=== PATIENT | female | born 1980 | race Caucasian/White ===

== ENCOUNTER 2018-02-13 19:44 | Inpatient (IN) ==
[2018-02-13] MEDS ORDERED: Ketorolac Inj 30 MG/ML (IVP) Vial IV.PUSH ONE (23:35)
[2018-02-13] MEDS ORDERED: Sod Chloride 0.9% Inj 1,000 ML IV.SIG ONE (23:35)
--- NOTE | 2018-02-13 23:39 | ED ---
HPI General Chief Complaint: Headache Stated Complaint: Sent by dr/abnormal labs Time Seen by Provider: 02/13/18 23:29 Source: patient and family Mode of arrival: ambulatory Limitations: no limitations History of Present Illness HPI Narrative: 37-year-old female presents emergency department for evaluation of headache and abnormal vaginal bleeding for over 8 months. She states that her headache is frontal in nature. Sharp and throbbing in quality. Present now for the last day or so. No alleviating factors. She states that she is also been feeling rundown, weak in general malaise. Positive body aches. She feels dizzy and lightheaded. She has had abnormal bleeding now for 8 months and has not seen a doctor. She went to a free clinic in [place] today who advised her to get outpatient laboratory tests go to the ER. She lives here in [facility] and does not have a primary care doctor. Symptoms are moderate. Denies . Related Data Home Medications Medication Instructions Recorded Confirmed No Known Home Medications 02/14/18 02/14/18 Allergies Allergy/AdvReac Type Severity Reaction Status Date / Time No Known Allergies Allergy Unverified 02/14/18 07:48 Review of Systems ROS: all other systems reviewed are negative PMFSH History History Provided By: Patient and Family Member Medical History Medical History No pertinent past medical history (Acute) Family History Family History Other Family history normal Social History Social History Substance History: No History of Abuse Second Hand Smoke Exposure: No Smoking Status: Never smoker How Often Do You Have a Drink Containing Alcohol: Never Recent Travel in [facility] within the Last 8 Weeks: No Recent Out of Country Travel within the Last 8 Weeks: No Exam Narrative Exam Narrative: GENERAL: Well-developed, well-nourished in no apparent distress. Nontoxic appearing. HEAD: Normocephalic, atraumatic. EYES: Pupils equal round and reactive. Extraocular motions intact. No scleral icterus. No injection or drainage. ENT: Nose clear. Throat without erythema, tonsillar hypertrophy or exudate. Uvula midline. Airway patent. NECK: Trachea midline. Supple, nontender, moves head freely. No central bony tenderness or spasm. CARDIOVASCULAR: Regular rate and rhythm without murmurs, gallops, or rubs. RESPIRATORY: Clear to auscultation. Breath sounds equal bilaterally. No wheezes , rales, or rhonchi. GASTROINTESTINAL: Abdomen soft, non-tender, nondistended. No hepato-splenomegaly , or palpable masses. No guarding. EXTREMITIES: No clubbing, cyanosis, or edema. No joint tenderness. BACK: Nontender without deformity. No flank tenderness. NEUROLOGICAL: Awake, alert and oriented x 3 .Cranial nerves grossly intact. Motor and sensory grossly within normal limits. Normal speech. Course Initial Documented Vital Signs Temperature 99.3 F 02/13/18 20:19 Pulse Rate 102 H 02/13/18 20:19 Respiratory Rate 16 02/13/18 20:19 Blood Pressure 111/65 02/13/18 20:19 Pulse Oximetry 100 02/13/18 20:19 Last Documented Vital Signs Temperature 98.0 F 02/14/18 12:00 Pulse Rate 95 H 02/14/18 12:00 Respiratory Rate 18 02/14/18 12:00 Blood Pressure 111/61 02/14/18 12:00 Pulse Oximetry 100 02/14/18 12:00 Medical Decision Making MDM Narrative Medical decision making narrative: IV access is obtained. Patient is given liter bolus of normal saline, Toradol 30 mg IV, Benadryl 50 mg IV, and Reglan 10 mg IV. Will perform basic metabolic panel, CBC, . Differential Diagnosis Differential Diagnosis: Dysfunctional uterine bleeding, anemia, electrolyte abnormality, cephalgia, tension headache, migraine Lab Data Result diagrams: 02/14/18 09:33 02/13/18 23:40 Lab Results 02/13/18 02/13/18 02/13/18 Range/Units 23:40 23:40 23:40 WBC 7.9 (4.0-11.0) th/mm3 RBC 2.15 L (4.00-5.30) mil/mm3 Hgb 4.8 L* (11.6-15.3) gm/dL Hct 15.5 L* (35.0-46.0) % MCV 72.0 L (80.0-100.0) fL MCH 22.2 L (27.0-34.0) pg MCHC 30.8 L (32.0-36.0) % RDW 18.8 H (11.6-17.2) % Plt Count 230 (150-450) th/mm3 MPV 7.5 (7.0-11.0) fL Sodium 140 (136-145) meq/L Potassium 3.8 (3.5-5.1) meq/L Chloride 106 (98-107) meq/L Carbon Dioxide 26.0 (21.0-32.0) meq/L Anion Gap 8 (5-15) meq/L BUN 11 (7-18) mg/dL Creatinine 0.64 (0.50-1.00) mg/dL Estimated GFR Greater than 89 (>89) mL/min Random Glucose 94 (74-106) mg/dL Calcium 8.5 (8.5-10.1) mg/dL Iron 10 L (50-170) mcg/dL TIBC 476 H (250-450) mcg/dL % Saturation 2.1 L (20-50) % TSH (0.358-3.740) uIU/mL Blood Type Antibody Screen MTS Gel Crossmatch 02/14/18 02/14/18 02/14/18 Range/Units 00:40 09:33 09:33 WBC (4.0-11.0) th/mm3 RBC (4.00-5.30) mil/mm3 Hgb 8.4 L D (11.6-15.3) gm/dL Hct 25.6 L (35.0-46.0) % MCV (80.0-100.0) fL MCH (27.0-34.0) pg MCHC (32.0-36.0) % RDW (11.6-17.2) % Plt Count (150-450) th/mm3 MPV (7.0-11.0) fL Sodium (136-145) meq/L Potassium (3.5-5.1) meq/L Chloride (98-107) meq/L Carbon Dioxide (21.0-32.0) meq/L Anion Gap (5-15) meq/L BUN (7-18) mg/dL Creatinine (0.50-1.00) mg/dL Estimated GFR (>89) mL/min Random Glucose (74-106) mg/dL Calcium (8.5-10.1) mg/dL Iron (50-170) mcg/dL TIBC (250-450) mcg/dL % Saturation (20-50) % TSH 1.810 (0.358-3.740) uIU/mL Blood Type A Positive Antibody Screen Negative MTS Gel Crossmatch See Detail Imaging Data Radiologist's impression: Pelvis Ultrasound 02/14/18 00:00 CONCLUSION: 1. Myometrium is heterogeneous and hyperemic. Findings are nonspecific. No discrete mass lesions. 2. Both ovaries are sonographically normal. No free fluid. Discharge Plan Discharge Disposition Patient Disposition: 01 Discharge Home Discharge Condition Condition: Stable Discharge Order Discharge Orders: Discharge Order (Routine); Ordered 02/14/18 Ordered By: Kain Prieto Discharge Details Anticipated Discharge Date: 02/14/18 Physicians Team ED Provider: Lori Joseph ED Midlevel Provider: Kain Prieto Primary Care Provider: Primary Care Gaby Bartlett Attending Provider: Isaias Rojas Other Providers: Donna Villasenor Discharge Interventions Interventions: ED Discharge Assessment Last Done: 02/14/18 11:38 Status ED Status: Left Department Discharge Information Discharge Date/Time: 02/14/18 11:39
[2018-02-14 00:27] LABS: Mean Corpuscular Hemoglobin 22.2 pg (27.0-34.0); Mean Platelet Volume 7.5 fL (7.0-11.0); Platelet Count 230 th/mm3 (150-450); Red Blood Count 2.15 mil/mm3 (4.00-5.30); Red Cell Distribution Width 18.8 % (11.6-17.2); White Blood Count 7.9 th/mm3 (4.0-11.0)
[2018-02-14 00:31] LABS: Mean Corpuscular HGB Conc 30.8 % (32.0-36.0)
[2018-02-14 00:35] LABS: Hematocrit 15.5 % (35.0-46.0); Hemoglobin 4.8 gm/dL (11.6-15.3)
[2018-02-14 00:40] LABS: Anion Gap 8 meq/L (5-15); Blood Urea Nitrogen 11 mg/dL (7-18); Calcium 8.5 mg/dL (8.5-10.1); Chloride 106 meq/L (98-107); Glomerular Filtration Rate Greater Than 89 mL/min (>89); Glucose,Random 94 mg/dL (74-106); Potassium 3.8 meq/L (3.5-5.1); Sodium 140 meq/L (136-145)
[2018-02-14] MEDS ORDERED: Sodium Chlor 0.9% Inj 250 ML IV.SIG SCH (01:00)
[2018-02-14] MEDS ORDERED: Acetaminophen 325 MG Tablet PO PRN (01:50)
[2018-02-14] MEDS ORDERED: Bisacodyl 10 MG Supp RECTAL PRN (01:50)
[2018-02-14] MEDS ORDERED: Temazepam 15 MG Capsule PO PRN (01:50)
[2018-02-14] MEDS: Sod Chloride 0.9% Inj 1,000 ML IV.CONT SCH ×2 (02:58→15:50)
[2018-02-14 03:43] LABS: % Iron Saturation 2.1 % (20-50)
--- NOTE | 2018-02-14 05:42 | P.HP ---
History of Present Illness Service: [facility] Primary Care Physician: No Primary Care Physician History of Present Illness: 37-year-old female with no significant past medical history presents the emergency department for the evaluation of headache and abnormal vaginal bleeding for approximately 8 months. The patient reports that her headache is in the front top of her head. She reports it is sharp and throbbing in quality. She states it is been present for the last 24 hours. The patient also reports that she has been feeling dizzy and weak. She endorses associated lightheadedness. Her hemoglobin was found to be 4.8. The patient does not have a primary care physician. Inpatient Certification: I certify that the inpatient services were ordered in accordance with Medicare regulations governing the order. This includes certification that hospital inpatient services are reasonable and necessary and in the case of services not specified as inpatient-only under 42 CFR 419.22(n), that they are appropriately provided as inpatient services in accordance to with the 2-midnight benchmark under 43 CFR 412.3(e) Estimated Total Length of Stay (Days): 2 Plans for Post Hospital Care: Not yet determined Review of Systems Denies fever or chills Denies blurry vision, otorrhea, rhinorrhea Denies sore throat and cough No chest pain, palpitations No shortness of breath or wheezing No abdominal pain Denies constipation/diarrhea/nausea/vomiting Denies muscle pain Denies focal weakness No rashes PMFSH - History History Provided By: Patient, Family Member - Medical / Surgical Hx Neg / Unobtainable Surgical History: No Previous Surgery - Medical History Medical History: Medical History (Last Updated 02/14/18 @ 05:40 by Brittney Copeland MD) No pertinent past medical history - Family History Family History: Family History (Last Updated 02/14/18 @ 05:40 by Brittney Copeland MD) Other Family history normal - Tobacco History Second Hand Smoke Exposure: No Smoking Status: Never smoker - Alcohol History How Often Do You Have a Drink Containing Alcohol: Never - Travel History Recent Travel in the [place] Within the Last 8 Weeks: No Recent Travel Out of the Country Within the Last 8 Weeks: No - Immunization History Tetanus Immunization: Unsure Hx Influenza Vaccine This Season: No Medications and Allergies Active Medications: Active Medications Acetaminophen (Tylenol) 650 mg PO Q4H PRN PRN Reason: Temp > 100.4 Al Hydroxide/Mg Hydroxide (Milk Of Magnesia Liq) 30 ml PO Q12H PRN PRN Reason: Mild Constipation Bisacodyl (Dulcolax Supp) 10 mg RECTAL DAILY PRN PRN Reason: SEVERE CONSITIPATION Sodium Chloride (Ns Inj) 250 mls @ 15 mls/hr IV.SIG ONCE VIVEK Stop: 02/14/18 17:39 Last Admin: 02/14/18 02:58 Dose: 15 mls/hr Sodium Chloride (Ns Inj) 1,000 mls @ 100 mls/hr IV.CONT .Q10H VIVEK Last Admin: 02/14/18 02:58 Dose: 100 mls/hr Lactulose (Lactulose Liq) 30 ml PO DAILY PRN PRN Reason: SEVERE CONSITIPATION Ondansetron HCl (Zofran Inj) 4 mg IV.PUSH Q6H PRN PRN Reason: NAUSEA OR VOMITING Senna/Docusate Sodium (Gracy-Colace) 1 tab PO BID VIVEK Sennosides (Senokot) 17.2 mg PO Q12H PRN PRN Reason: Moderate Constipation Temazepam (Restoril) 15 mg PO HS PRN PRN Reason: INSOMNIA Allergies Allergy/AdvReac Type Severity Reaction Status Date / Time No Known Allergies Uncoded 12/25/09 17:59 Exam Vital signs: Vital Signs 02/13/18 20:19 02/14/18 02:50 02/14/18 03:05 Temperature 99.3 F 98.5 F 98.6 F Pulse Rate 102 H 83 91 H Respiratory Rate 16 14 16 Blood Pressure 111/65 109/60 102/60 Pulse Oximetry 100 96 02/14/18 03:14 02/14/18 04:44 02/14/18 05:00 Temperature 98.6 F 98.5 F 98.4 F Pulse Rate 91 H 75 74 Respiratory Rate 16 16 16 Blood Pressure 102/60 105/62 99/59 L Pulse Oximetry 96 100 100 Intake & Output 02/13/18 02/13/18 02/14/18 06:59 18:59 06:59 Intake Total 400 / 400 Balance 400 / 400 Weight 62.142 kg Intake: Intake (Blood Product) Amt 400 / 400 Rbc As-3 Leukoreduced Unit 400 / 400 [id number] Rbc As-3 Leukoreduced Unit 0 / 0 [id number] Narrative: Gen.: No acute distress Head: Normocephalic. Atraumatic. EENT: Pupils equal round and reactive to light. Nose without drainage. Airway intact. Throat without injection. Cardiovascular: Regular rate and rhythm. No murmurs, rubs or gallops. Respiratory: Lungs clear to auscultation bilaterally. No wheezes or rhonchi. Abdomen: Soft, nontender, nondistended. No peritoneal signs. Musculoskeletal: No gross deformities. No edema. Skin: No obvious rashes or erythema. Neuro: Sensory and motor grossly intact. Cranial nerves II through XII grossly intact. Psych: Appropriate mood and affect Results - Labs CBC & Chem 7: 02/13/18 23:40 02/13/18 23:40 Labs: Laboratory Results - last 24 hr 02/13/18 02/13/18 02/13/18 23:40 23:40 23:40 WBC 7.9 RBC 2.15 L Hgb 4.8 L* Hct 15.5 L* MCV 72.0 L MCH 22.2 L MCHC 30.8 L RDW 18.8 H Plt Count 230 MPV 7.5 Sodium 140 Potassium 3.8 Chloride 106 Carbon Dioxide 26.0 Anion Gap 8 BUN 11 Creatinine 0.64 Estimated GFR Greater than 89 Random Glucose 94 Calcium 8.5 Iron 10 L TIBC 476 H % Saturation 2.1 L Blood Type Antibody Screen MTS Gel Crossmatch 02/14/18 00:40 WBC RBC Hgb Hct MCV MCH MCHC RDW Plt Count MPV Sodium Potassium Chloride Carbon Dioxide Anion Gap BUN Creatinine Estimated GFR Random Glucose Calcium Iron TIBC % Saturation Blood Type A Positive Antibody Screen Negative MTS Gel Crossmatch See Detail Caprini VTE Risk Assessment Caprini VTE Risk Assessment: No/Low Risk (score <= 1) Caprini Risk Assessment Model: Point Value = 1 Point Value = 2 Point Value = 3 Point Value = 5 Age 41-60 Minor surgery BMI > 25 kg/m2 Swollen legs Varicose veins or History of unexplained or recurrent spontaneous Oral contraceptives or hormone replacement Sepsis (< 1 month) Serious lung disease, including pneumonia (< 1 month) Abnormal pulmonary function Acute myocardial infarction Congestive heart failure (< 1 month) History of inflammatory bowel disease Medical patient at bed rest Age 61-74 Arthroscopic surgery Major open surgery (> 45 min) Laparoscopic surgery (> 45 min) Malignancy Confined to bed (> 72 hours) Immobilizing plaster cast Central venous access Age >= 75 History of VTE Family history of VTE Factor V Leiden Prothrombin [id number] Lupus anticoagulant Anticardiolipin antibodies Elevated serum homocysteine Heparin-induced thrombocytopenia Other congenital or acquired thrombophilia Stroke (< 1 month) Elective arthroplasty Hip, pelvis, or leg fracture Acute spinal cord injury (< 1 month) Prophylaxis Regimen: Total Risk Factor Score Risk Level Prophylaxis Regimen 0-1 Low Early ambulation 2 Moderate Order ONE of the following: *Sequential Compression Device (SCD) *Heparin 5000 units SQ BID 3-4 Higher Order ONE of the following medications: *Heparin 5000 units SQ TID *Enoxaparin/Lovenox 40 mg SQ daily (WT < 150 kg, CrCl > 30 mL/min) *Enoxaparin/Lovenox 30 mg SQ daily (WT < 150 kg, CrCl > 10-29 mL/min) *Enoxaparin/Lovenox 30 mg SQ BID (WT < 150 kg, CrCl > 30 mL/min) AND/OR *Sequential Compression Device (SCD) 5 or more Highest Order ONE of the following medications: *Heparin 5000 units SQ TID (Preferred with Epidurals) *Enoxaparin/Lovenox 40 mg SQ daily (WT < 150 kg, CrCl > 30 mL/min) *Enoxaparin/Lovenox 30 mg SQ daily (WT < 150 kg, CrCl > 10-29 mL/min) *Enoxaparin/Lovenox 30 mg SQ BID (WT < 150 kg, CrCl > 30 mL/min) AND *Sequential Compression Device (SCD) Assessment and Plan - Plan Assessment/plan: 1. Symptomatic anemia/abnormal vaginal bleeding Patient with an H&H of 4.8/15.5 Transfuse 3 units packed red blood cells Follow-up H&H status post transfusion Gynecology consulted, appreciate recommendations Iron studies pending FEN N.p.o. Electrolytes: Monitor and replete as needed
[2018-02-14 10:39] LABS: Hematocrit 25.6 % (35.0-46.0); Hemoglobin 8.4 gm/dL (11.6-15.3)
[2018-02-14] MEDS: Senna/Docusate Sodium 8.6/50 MG Tablet PO SCH (12:48)
--- NOTE | 2018-02-14 16:00 | US ---
EXAM DATE: 02/14/2018 8:12 AM EDT AGE/SEX: 37 years / Female INDICATIONS: Bleeding. CLINICAL DATA: This is the patient's initial encounter. Patient reports that signs and symptoms have been present for 7 - 11 months and indicates a pain score of 3/10. MEDICAL/SURGICAL HISTORY: . Symptomatic anemia. Abnormal vaginal bleeding. None. COMPARISON: No prior exams available for comparison. MEASUREMENTS: Uterus:__9.0 x 6.4 x 5.0 cm Endometrial Stripe:__3 mm Right Ovary:__ 3.4 x 2.2 x 1.7 cm Left Ovary:__ 2.0 x 1.6 x 1.4 cm FINDINGS: Uterus: Myometrium is somewhat heterogeneous with no discrete mass lesion. Increased vascularity on c olor Doppler images. Endometrial Stripe: The endometrial stripe displays homogeneous echotexture. Right Ovary: Ovary contains no mass or significant cystic lesion. Left Ovary: Ovary contains no mass or significant cystic lesion. Fluid: No free fluid. Other: None. CONCLUSION: 1. Myometrium is heterogeneous and hyperemic. Findings are nonspecific. No discrete mass lesions. 2. Both ovaries are sonographically normal. No free fluid. Electronically signed by: William Lee MD 02/14/2018 3:58 PM EDT
--- NOTE | 2018-02-14 16:07 | P.PN ---
Subjective Interval history: awake and alert [place] speaking feels stronger seen with - also citizen of [place] speaking - history reviewed with both of them - denies vaginal bleeding but blood per RECTUM with brown stools for about 4 weeks states frequent frontal headaches and takes Ibuprofen 2-3 tablets almost on a daily basis for past 3=4 months having on and off mild epigastric discomfort, denies any nausea or vomiting denies alcohol use + family history of colon cancer - sibling states regular menstrual cycles- q 28- 30 days- 4-5 days duration, denies heavy cycles no changes in cycles , no dysmenorrhea LMP 01/20 Physical Exam Vital signs: Vital Signs 02/13/18 20:19 02/14/18 02:50 02/14/18 03:05 Temperature 99.3 F 98.5 F 98.6 F Pulse Rate 102 H 83 91 H Respiratory Rate 16 14 16 Blood Pressure 111/65 109/60 102/60 Pulse Oximetry 100 96 02/14/18 03:14 02/14/18 04:44 02/14/18 05:00 Temperature 98.6 F 98.5 F 98.4 F Pulse Rate 91 H 75 74 Respiratory Rate 16 16 16 Blood Pressure 102/60 105/62 99/59 L Pulse Oximetry 96 100 100 02/14/18 06:22 02/14/18 06:35 02/14/18 06:39 Temperature 98.4 F 98.4 F Pulse Rate 84 74 79 Respiratory Rate 16 16 14 Blood Pressure 106/70 101/59 L 106/65 Pulse Oximetry 100 100 100 02/14/18 09:09 02/14/18 12:00 Temperature 98.1 F 98.0 F Pulse Rate 82 95 H Respiratory Rate 17 18 Blood Pressure 97/88 L 111/61 Pulse Oximetry 100 100 Intake & Output 02/13/18 02/14/18 02/14/18 18:59 06:59 18:59 Intake Total 800 / 800 1400 / 1400 Balance 800 / 800 1400 / 1400 Weight 62.142 kg 62.142 kg Intake: IV 1000 / 1000 NS Inj 1,000 ML @ 100 mls/hr IV 1000 / 1000 .CONT .Q10H [facility] Rx#:[id number] Intake (Blood Product) Amt 800 / 800 400 / 400 Rbc As-3 Leukoreduced Unit 0 / 0 400 / 400 [id number] Rbc As-3 Leukoreduced Unit 400 / 400 [id number] Rbc As-3 Leukoreduced Unit 400 / 400 [id number] Other: Weight On Admission 62.142 kg Narrative: awake and alsrt, oriented x 3, citizen of [place] speaking anicteric lungs- clear regular rhythm abdomen soft, good bowel sounds, no tenderness, no guarding extremities no edema rectal exam- tight sphincter tone, one small skin tag, empty rectal vault, no stools on withdrawal of tactaing finger neuro exam- CN intact motor 5/5 no sensory deficits Results - Labs CBC & Chem 7: 02/15/18 16:00 02/15/18 04:45 Laboratory Results - last 24 hr 02/13/18 02/13/18 02/13/18 23:40 23:40 23:40 WBC 7.9 RBC 2.15 L Hgb 4.8 L* Hct 15.5 L* MCV 72.0 L MCH 22.2 L MCHC 30.8 L RDW 18.8 H Plt Count 230 MPV 7.5 Sodium 140 Potassium 3.8 Chloride 106 Carbon Dioxide 26.0 Anion Gap 8 BUN 11 Creatinine 0.64 Estimated GFR Greater than 89 Random Glucose 94 Calcium 8.5 Iron 10 L TIBC 476 H % Saturation 2.1 L TSH Blood Type Antibody Screen MTS Gel Crossmatch 02/14/18 02/14/18 02/14/18 00:40 09:33 09:33 WBC RBC Hgb 8.4 L D Hct 25.6 L MCV MCH MCHC RDW Plt Count MPV Sodium Potassium Chloride Carbon Dioxide Anion Gap BUN Creatinine Estimated GFR Random Glucose Calcium Iron TIBC % Saturation TSH 1.810 Blood Type A Positive Antibody Screen Negative MTS Gel Crossmatch See Detail Assessment and Plan - Plan 37 years old female came in with dizziness, weakness seen with both citizen of [place] speaking History reviewed with both of them Severe Symptomatic Iron deficiency anemia likely from insidious, chronic GIB- states blood per rectum mixed with brown stools with history of chronic NSAIDs use for headaches S/P 3 units RBC - H and H up- Patient with an H&H of 4.8/15.5 on admission - + family history of colon cancer- a sibling - start Iron sulfate 325 mg po bid - doubt vaginal bleeding - by history per patient- regular cycles - rectal exam- done at bedside- tight sphincter tone, no stools,no blood on withdrawal examining finger - start IV PPI - Gastroenterology consult- consult for EGD/colonoscopy- will defer to them for imaging studies - clear liquids tonight, NPO after midnight - CBC in am ? Vaginal bleeding- denies - cancel GYne consult for now pending above work up - a pelvic ultrasound ordered- will ff results Chronic headaches- no associated visual disturbances - neuro exam- unremarkable - will get a head CT at least - non emergent may have clear liquid today NPO post midnight discussed with patient and at bedside
[2018-02-14] MEDS ORDERED: PEG 3350/E-Lyte Soln 4000 ML Bottle PO ONE (17:00)
--- NOTE | 2018-02-14 17:10 | P.CONGI ---
History of Present Illness Consult date: 02/14/18 Consult reason: Rectal bleeding Chief complaint: Symptomatic Anemia History of Present Illness: This is a 37 yo F with no significant PMH who presented to a clinic in [facility] yesterday for evaluation of headaches. States she was advised to take Ibuprofen for the headache, however did not notice any improvement and was also having a lot of dizziness so she came to [place] yesterday for evaluation of symptoms. Pt was found to be severely anemic and has been admitted to the hospital. Our service has been consulted due to reports of rectal bleeding. Pt reports dark red blood in her stool for the past 8 months, has 2-3 stools a day , states straining with stools and hard BMs. Also notes that her stools are pencil thin. Associated lower abdominal pain, intermittent, associated with BMs. Also notes a pain in her lower back with bowel movements. Reports she has been losing weight since September of last year, but that this was intentional after having a baby. Reports nausea for the past three months, states it comes on suddenly, not related to PO intake. Denies any emesis. Denies heartburn. Family history significant for sister who of colon cancer and she states both of her parents have "colon issues". Pt denies ETOH, smoking, and illicit drug use. Other than taking Ibuprofen for headache, denies taking NSAIDs. Of note, previous records noted pt to have vaginal bleeding, pt denies this. Denies previous EGD and colonoscopy. <Carolin Aldridge - Last Filed: 02/14/18 17:13> Review of Systems Constitutional: Reports weight loss Eyes: Reports blurry vision Gastrointestinal: Reports abdominal pain, Reports bright, red blood in stools, Reports change in bowel habits, Reports constipation, Reports nausea, Denies vomiting Neurologic: Reports dizziness <Carolin Aldridge - Last Filed: 02/14/18 17:13> PMFSH - History History Provided By: Patient, Family Member - Medical History Medical History: Medical History (Last Updated 02/14/18 @ 05:40 by Brittney Copeland MD) No pertinent past medical history - Family History Family History: Family History (Last Updated 02/14/18 @ 05:40 by Brittney Copeland MD) Other Family history normal - Tobacco History Second Hand Smoke Exposure: No Smoking Status: Never smoker - Alcohol History How Often Do You Have a Drink Containing Alcohol: Never - Substance Use History Substance History: No History of Abuse - Travel History Recent Travel in the [place] Within the Last 8 Weeks: No Recent Travel Out of the Country Within the Last 8 Weeks: No - Immunization History Tetanus Immunization: Unsure Hx Influenza Vaccine This Season: No <PerfectoCarolin weaver - Last Filed: 02/14/18 17:13> - Medical History Medical History: Medical History (Last Updated 02/14/18 @ 05:40 by Brittney Copeland MD) No pertinent past medical history - Family History Family History: Family History (Last Updated 02/14/18 @ 05:40 by Brittney Copeland MD) Other Family history normal <Donna Villasenor - Last Filed: 02/14/18 18:23> Medications and Allergies Active Medications: Active Medications Acetaminophen (Tylenol) 650 mg PO Q4H PRN PRN Reason: Temp > 100.4 Al Hydroxide/Mg Hydroxide (Milk Of Magnesia Liq) 30 ml PO Q12H PRN PRN Reason: Mild Constipation Bisacodyl (Dulcolax Supp) 10 mg RECTAL DAILY PRN PRN Reason: SEVERE CONSITIPATION Ferrous Sulfate (Ferosul) 325 mg PO BID@1200,1700 [facility] Sodium Chloride (Ns Inj) 250 mls @ 15 mls/hr IV.SIG ONCE [facility] Stop: 02/14/18 17:39 Last Admin: 02/14/18 02:58 Dose: 15 mls/hr Sodium Chloride (Ns Inj) 1,000 mls @ 70 mls/hr IV.CONT .[id number] [facility] Last Admin: 02/14/18 15:50 Dose: 100 mls/hr Lactulose (Lactulose Liq) 30 ml PO DAILY PRN PRN Reason: SEVERE CONSITIPATION Ondansetron HCl (Zofran Inj) 4 mg IV.PUSH Q6H PRN PRN Reason: NAUSEA OR VOMITING Pantoprazole Sodium (Protonix Inj) [address] [facility] Polyethylene Glycol/Electrolytes (Colyte Liq) 4,000 ml PO ONCE ONE Stop: 02/14/18 17:01 Senna/Docusate Sodium (Gracy-Colace) [address] [facility] Last Admin: 02/14/18 12:48 Dose: Not Given Sennosides (Senokot) 17.2 mg PO Q12H PRN PRN Reason: Moderate Constipation Temazepam (Restoril) 15 mg PO HS PRN PRN Reason: INSOMNIA <Carolin Aldridge - Last Filed: 02/14/18 17:13> Active Medications: Active Medications Acetaminophen (Tylenol) 650 mg PO Q4H PRN PRN Reason: Temp > 100.4 Al Hydroxide/Mg Hydroxide (Milk Of Magnesia Liq) 30 ml PO Q12H PRN PRN Reason: Mild Constipation Bisacodyl (Dulcolax Supp) 10 mg RECTAL DAILY PRN PRN Reason: SEVERE CONSITIPATION Ferrous Sulfate (Ferosul) 325 mg PO BID@1200,1700 [facility] Last Admin: 02/14/18 18:11 Dose: 325 mg Sodium Chloride (Ns Inj) 1,000 mls @ 70 mls/hr IV.CONT .[id number] [facility] Last Admin: 02/14/18 15:50 Dose: 100 mls/hr Lactulose (Lactulose Liq) 30 ml PO DAILY PRN PRN Reason: SEVERE CONSITIPATION Ondansetron HCl (Zofran Inj) 4 mg IV.PUSH Q6H PRN PRN Reason: NAUSEA OR VOMITING Pantoprazole Sodium (Protonix Inj) [address] [facility] Last Admin: 02/14/18 18:11 Dose: 40 mg Senna/Docusate Sodium (Gracy-Colace) [address] [facility] Last Admin: 02/14/18 12:48 Dose: Not Given Sennosides (Senokot) 17.2 mg PO Q12H PRN PRN Reason: Moderate Constipation Temazepam (Restoril) 15 mg PO HS PRN PRN Reason: INSOMNIA <Donna Villasenor - Last Filed: 02/14/18 18:23> Allergies Allergy/AdvReac Type Severity Reaction Status Date / Time No Known Allergies Allergy Unverified 02/14/18 07:48 Home Medications Medication Instructions Recorded Confirmed Type No Known Home Medications 02/14/18 02/14/18 History Exam Vital signs: Vital Signs 02/13/18 20:19 02/14/18 02:50 02/14/18 03:05 Temperature 99.3 F 98.5 F 98.6 F Pulse Rate 102 H 83 91 H Respiratory Rate 16 14 16 Blood Pressure 111/65 109/60 102/60 Pulse Oximetry 100 96 02/14/18 03:14 02/14/18 04:44 02/14/18 05:00 Temperature 98.6 F 98.5 F 98.4 F Pulse Rate 91 H 75 74 Respiratory Rate 16 16 16 Blood Pressure 102/60 105/62 99/59 L Pulse Oximetry 96 100 100 02/14/18 06:22 02/14/18 06:35 02/14/18 06:39 Temperature 98.4 F 98.4 F Pulse Rate 84 74 79 Respiratory Rate 16 16 14 Blood Pressure 106/70 101/59 L 106/65 Pulse Oximetry 100 100 100 02/14/18 09:09 02/14/18 12:00 Temperature 98.1 F 98.0 F Pulse Rate 82 95 H Respiratory Rate 17 18 Blood Pressure 97/88 L 111/61 Pulse Oximetry 100 100 Intake & Output 02/13/18 02/14/18 02/14/18 18:59 06:59 18:59 Intake Total 800 / 800 1400 / 1400 Balance 800 / 800 1400 / 1400 Weight 62.142 kg 62.142 kg Intake: IV 1000 / 1000 NS Inj 1,000 ML @ 100 mls/hr IV 1000 / [address] [facility] Rx#:[id number] Intake (Blood Product) Amt 800 / 800 400 / 400 Rbc As-3 Leukoreduced Unit 0 / 0 400 / 400 [id number] Rbc As-3 Leukoreduced Unit 400 / 400 [id number] Rbc As-3 Leukoreduced Unit 400 / 400 [id number] Other: Weight On Admission 62.142 kg - Constitutional no acute distress - Routine HEENT Exam Head: Present: normocephalic, atraumatic - Routine Respiratory Exam Absent: accessory muscle use - Routine Cardiovascular Exam Present: RRR - Routine Abdominal Exam Present: soft, normoactive bowel sounds. Absent: tenderness, distended - Routine Skin Exam Present: dry, warm - Routine Neurological Exam Present: alert, oriented X3 <Carolin Aldridge - Last Filed: 02/14/18 17:13> Vital signs: Vital Signs 02/13/18 20:19 02/14/18 02:50 02/14/18 03:05 Temperature 99.3 F 98.5 F 98.6 F Pulse Rate 102 H 83 91 H Respiratory Rate 16 14 16 Blood Pressure 111/65 109/60 102/60 Pulse Oximetry 100 96 02/14/18 03:14 02/14/18 04:44 02/14/18 05:00 Temperature 98.6 F 98.5 F 98.4 F Pulse Rate 91 H 75 74 Respiratory Rate 16 16 16 Blood Pressure 102/60 105/62 99/59 L Pulse Oximetry 96 100 100 02/14/18 06:22 02/14/18 06:35 02/14/18 06:39 Temperature 98.4 F 98.4 F Pulse Rate 84 74 79 Respiratory Rate 16 16 14 Blood Pressure 106/70 101/59 L 106/65 Pulse Oximetry 100 100 100 02/14/18 09:09 02/14/18 12:00 Temperature 98.1 F 98.0 F Pulse Rate 82 95 H Respiratory Rate 17 18 Blood Pressure 97/88 L 111/61 Pulse Oximetry 100 100 Intake & Output 02/13/18 02/14/18 02/14/18 18:59 06:59 18:59 Intake Total 800 / 800 1400 / 1400 Balance 800 / 800 1400 / 1400 Weight 62.142 kg 62.142 kg Intake: IV 1000 / 1000 NS Inj 1,000 ML @ 100 mls/hr IV 1000 / [address] [facility] Rx#:[id number] Intake (Blood Product) Amt 800 / 800 400 / 400 Rbc As-3 Leukoreduced Unit 0 / 0 400 / 400 [id number] Rbc As-3 Leukoreduced Unit 400 / 400 [id number] Rbc As-3 Leukoreduced Unit 400 / 400 [id number] Other: Weight On Admission 62.142 kg <Donna Villasenor - Last Filed: 02/14/18 18:23> Results - Labs CBC & Chem 7: 02/14/18 09:33 02/13/18 23:40 Labs: Laboratory Results - last 24 hr 02/13/18 02/13/18 02/13/18 23:40 23:40 23:40 WBC 7.9 RBC 2.15 L Hgb 4.8 L* Hct 15.5 L* MCV 72.0 L MCH 22.2 L MCHC 30.8 L RDW 18.8 H Plt Count 230 MPV 7.5 Sodium 140 Potassium 3.8 Chloride 106 Carbon Dioxide 26.0 Anion Gap 8 BUN 11 Creatinine 0.64 Estimated GFR Greater than 89 Random Glucose 94 Calcium 8.5 Iron 10 L TIBC 476 H % Saturation 2.1 L TSH Blood Type Antibody Screen MTS Gel Crossmatch 02/14/18 02/14/18 02/14/18 00:40 09:33 09:33 WBC RBC Hgb 8.4 L D Hct 25.6 L MCV MCH MCHC RDW Plt Count MPV Sodium Potassium Chloride Carbon Dioxide Anion Gap BUN Creatinine Estimated GFR Random Glucose Calcium Iron TIBC % Saturation TSH 1.810 Blood Type A Positive Antibody Screen Negative MTS Gel Crossmatch See Detail - Imaging Impressions Pelvis Ultrasound 02/14/18 00:00 CONCLUSION: 1. Myometrium is heterogeneous and hyperemic. Findings are nonspecific. No discrete mass lesions. 2. Both ovaries are sonographically normal. No free fluid. <Carolin Aldridge - Last Filed: 02/14/18 17:13> - Labs CBC & Chem 7: 02/14/18 09:33 02/13/18 23:40 Labs: Laboratory Results - last 24 hr 02/13/18 02/13/18 02/13/18 23:40 23:40 23:40 WBC 7.9 RBC 2.15 L Hgb 4.8 L* Hct 15.5 L* MCV 72.0 L MCH 22.2 L MCHC 30.8 L RDW 18.8 H Plt Count 230 MPV 7.5 Sodium 140 Potassium 3.8 Chloride 106 Carbon Dioxide 26.0 Anion Gap 8 BUN 11 Creatinine 0.64 Estimated GFR Greater than 89 Random Glucose 94 Calcium 8.5 Iron 10 L TIBC 476 H % Saturation 2.1 L TSH Blood Type Antibody Screen MTS Gel Crossmatch 02/14/18 02/14/18 02/14/18 00:40 09:33 09:33 WBC RBC Hgb 8.4 L D Hct 25.6 L MCV MCH MCHC RDW Plt Count MPV Sodium Potassium Chloride Carbon Dioxide Anion Gap BUN Creatinine Estimated GFR Random Glucose Calcium Iron TIBC % Saturation TSH 1.810 Blood Type A Positive Antibody Screen Negative MTS Gel Crossmatch See Detail - Imaging Impressions Pelvis Ultrasound 02/14/18 00:00 CONCLUSION: 1. Myometrium is heterogeneous and hyperemic. Findings are nonspecific. No discrete mass lesions. 2. Both ovaries are sonographically normal. No free fluid. <Donna Villasenor - Last Filed: 02/14/18 18:23> Assessment and Plan - Plan INTERPRETATION SERVICES USED FOR THIS ENCOUNTER Assessment: - Anemia with reports of rectal bleeding- microcytic, hypochromic On admission H/H 4.8/15.5 Denies history of anemia Pt reports rectal bleeding x 8 months, hard stools, straining, has 2-3 BMs a day. Associated lower abdominal and back pain with BMs. Complaining of pencil thin stools. Also complaining of nausea, denies emesis. Denies heartburn. Weight loss since September 2016, states this is intentional after having a baby. Family history significant for sister who from colon cancer and states both of her parents have "colon issues" Has never had EGD or colonoscopy Denies ETOH, smoking, and illicit drug use. Denies NSAID use other than taking Ibuprofen yesterday for a headache Plan: EGD and colonoscopy tomorrow Obtain consent Clear liquids today Golytely prep NPO after MN Monitor H/H CT abdomen and pelvis W IV contrast Protonix Antiemetics PRN Further recommendations to follow Pt has been seen and examined by myself and Dr. Villasenor and this note is written on her behalf <Carolin Aldridge - Last Filed: 02/14/18 17:13> - Attending Attestation seen, examined agree with above <Donna Villasenor - Last Filed: 02/14/18 18:23>
[2018-02-14] MEDS: Pantoprazole Inj 40 MG Vial IV.PUSH SCH (18:11)
[2018-02-14] MEDS: Ferrous Sulfate 325 MG Tablet PO SCH (18:11)
[2018-02-14 22:01] LABS: Prothrombin Time 10.5 sec (9.8-11.6)
[2018-02-14] MEDS ORDERED: Diatrizoate Meglum/Diatrizoate Sod Liq 9 ML UDC PO ONE (22:15)
[2018-02-15] MEDS: Senna/Docusate Sodium 8.6/50 MG Tablet PO SCH ×2 (01:55→08:18)
[2018-02-15] MEDS: Sod Chloride 0.9% Inj 1,000 ML IV.CONT SCH ×2 (02:19→13:37)
[2018-02-15 06:02] LABS: Baso % (Auto) 0.6 % (0.0-2.0); Eos # (Auto) 0.2 th/mm3 (0.0-0.4); Eos % (Auto) 2.2 % (0.0-4.0); Hematocrit 24.3 % (35.0-46.0); Hemoglobin 7.9 gm/dL (11.6-15.3); Lymph # (Auto) 1.8 th/mm3 (1.0-4.8); Lymph % (Auto) 24.4 % (9.0-44.0); Mean Corpuscular HGB Conc 32.8 % (32.0-36.0); Mean Corpuscular Hemoglobin 24.6 pg (27.0-34.0); Mean Platelet Volume 7.8 fL (7.0-11.0); Mono # (Auto) 0.7 th/mm3 (0.0-0.9); Mono % (Auto) 8.9 % (0.0-8.0); Neut # (Auto) 4.7 th/mm3 (1.8-7.7); Neut % (Auto) 63.9 % (16.0-70.0); Platelet Count 185 th/mm3 (150-450); Red Blood Count 3.24 mil/mm3 (4.00-5.30); Red Cell Distribution Width 17.5 % (11.6-17.2); White Blood Count 7.4 th/mm3 (4.0-11.0)
[2018-02-15 06:27] LABS: Albumin 3.3 g/dL (3.4-5.0); Anion Gap 10 meq/L (5-15); Aspartate Aminotransferase 26 U/L (15-37); Blood Urea Nitrogen 6 mg/dL (7-18); Calcium 8.1 mg/dL (8.5-10.1); Chloride 111 meq/L (98-107); Glomerular Filtration Rate Greater Than 89 mL/min (>89); Glucose,Random 80 mg/dL (74-106); Potassium 3.7 meq/L (3.5-5.1); Sodium 143 meq/L (136-145)
[2018-02-15 06:28] LABS: Alanine Aminotransferase 31 U/L (10-53)
[2018-02-15 06:31] LABS: Alkaline Phosphatase 52 U/L (45-117); Total Protein 6.4 g/dL (6.4-8.2)
[2018-02-15] MEDS: Pantoprazole Inj 40 MG Vial IV.PUSH SCH (08:56)
--- NOTE | 2018-02-15 09:22 | P.PN ---
Subjective Interval history: F/U GIB. Having vaginal bleeding no abd pain or dizziness Physical Exam Vital signs: Vital Signs 02/14/18 12:00 02/14/18 20:00 02/15/18 00:00 Temperature 98.0 F 98.0 F 97.6 F Pulse Rate 95 H 74 72 Respiratory Rate 18 20 18 Blood Pressure 111/61 133/65 107/66 Pulse Oximetry 100 100 100 02/15/18 04:00 Temperature 97.7 F Pulse Rate 69 Respiratory Rate 18 Blood Pressure 120/66 Pulse Oximetry 100 Intake & Output 02/14/18 02/15/18 02/15/18 18:59 06:59 18:59 Intake Total 1400 / 1400 1900 / 1900 Balance 1400 / 1400 1900 / 1900 Weight 62.142 kg 62.12 kg Intake: IV 1000 / 1000 1000 / 1000 NS Inj 1,000 ML @ 70 mls/hr IV. 1000 / 1000 1000 / 1000 CONT .[id number] [facility] Rx#:[id number] Oral 900 / 900 Intake (Blood Product) Amt 400 / 400 Rbc As-3 Leukoreduced Unit 400 / 400 [id number] Other: # Voids 3 # Bowel Movements 2 Weight On Admission 62.142 kg Narrative: awake and alsrt, oriented x 3, croatian speaking anicteric lungs- clear regular rhythm abdomen soft, good bowel sounds, no tenderness, no guarding extremities no edema neuro exam- CN intact motor 5/5 no sensory deficits Results - Labs CBC & Chem 7: 02/15/18 04:45 02/15/18 04:45 Laboratory Results - last 24 hr 02/14/18 02/14/18 02/14/18 09:33 09:33 21:35 WBC RBC Hgb 8.4 L D Hct 25.6 L MCV MCH MCHC RDW Plt Count MPV Neut % (Auto) Lymph % (Auto) [place] % (Auto) Eos % (Auto) Baso % (Auto) Neut # (Auto) Lymph # (Auto) [place] # (Auto) Eos # (Auto) Baso # (Auto) WBC Differential Differential Comment PT 10.5 INR 1.0 Sodium Potassium Chloride Carbon Dioxide Anion Gap BUN Creatinine Estimated GFR Random Glucose Calcium Total Bilirubin AST ALT Alkaline Phosphatase Total Protein Albumin TSH 1.810 02/15/18 02/15/18 04:45 04:45 WBC 7.4 RBC 3.24 L Hgb 7.9 L Hct 24.3 L MCV 75.0 L MCH 24.6 L MCHC 32.8 RDW 17.5 H Plt Count 185 MPV 7.8 Neut % (Auto) 63.9 Lymph % (Auto) 24.4 [place] % (Auto) 8.9 H Eos % (Auto) 2.2 Baso % (Auto) 0.6 Neut # (Auto) 4.7 Lymph # (Auto) 1.8 [place] # (Auto) 0.7 Eos # (Auto) 0.2 Baso # (Auto) 0.0 WBC Differential . Differential Comment Auto diff final PT INR Sodium 143 Potassium 3.7 Chloride 111 H Carbon Dioxide 22.0 Anion Gap 10 BUN 6 L Creatinine 0.61 Estimated GFR Greater than 89 Random Glucose 80 Calcium 8.1 L Total Bilirubin 0.4 AST 26 ALT 31 Alkaline Phosphatase 52 Total Protein 6.4 Albumin 3.3 L TSH - Imaging Impressions Pelvis Ultrasound 02/14/18 00:00 CONCLUSION: 1. Myometrium is heterogeneous and hyperemic. Findings are nonspecific. No discrete mass lesions. 2. Both ovaries are sonographically normal. No free fluid. - Procedures EGD and cscope Assessment and Plan - Plan 37 years old female came in with dizziness, weakness Severe Symptomatic Iron deficiency anemia likely from vaginal bleeding. Signal System Testing Maintainer consulted S/P 3 units RBC - start Iron sulfate 325 mg po bid Duodenitis, superficial ulcers duodenum-biopsy gastritis antrum/superficial ulcers-biopsy RECOMMENDATIONS: 1. Await biopsy results. Biopsy results will not be ready for 7-10 days. If you don't hear from us in two weeks, call our office for biopsy results. 2. Anti-reflux regimen 3. Continue PPI 4. Avoid NSAIDS Colonoscopy shows hemorrhoids. Hemorrhoidal suppository. Avoid constipation. Chronic headaches- no associated visual disturbances - neuro exam- unremarkable - will get a head CT at least - non emergent Low risk for DVT Discharge Planning: per Signal System Testing Maintainer
[2018-02-15] MEDS ORDERED: Metoprolol Tartrate 25 MG Tablet PO SCH (10:45)
[2018-02-15] MEDS ORDERED: Chlorhexidine Gluconate 2% 1 Pack (2 Cloths) TOPICAL SCH (10:45)
[2018-02-15] MEDS ORDERED: Sodium Chlor 0.9% Inj 500 ML IV.SIG SCH (11:00)
--- NOTE | 2018-02-15 11:28 | GIPROC ---
[facility] [address] [facility]. [facility], [address] COLONOSCOPY PROCEDURE REPORT EXAM DATE: 02/15/2018 PATIENT NAME: David Live MR #: [id number] BIRTHDATE: 1980 ENDOSCOPIST: Donna Villaseonr MD ORDER #: [id number] MANAGER CUSTOMER SERVICE: Klaudia Dimas and Doretha Coelho STATUS: inpatient INDICATIONS: The patient is a 37 yr old female here for a colonoscopy due to anemia, rectal bleeding, family history of colon cancer PROCEDURE PERFORMED: Colonoscopy, diagnostic MEDICATIONS: Per Anesthesia and None. PREP QUALITY: good PREP TYPE:Other: ESTIMATED BLOOD LOSS: None CONSENT: The patient understands the risks and benefits of the procedure and understands that these risks include, but are not limited to: sedation, allergic reaction, infection, perforation and/or bleeding. Alternative means of evaluation and treatment include, among others: physical exam, x-rays, and/or surgical intervention. The patient elects to proceed with this endoscopic procedure. medical equipment was checked for proper function. Hand hygiene and appropriate measures for infection prevention was taken. After the risks, benefits and alternatives of the procedure were thoroughly explained, Informed consent was verified, confirmed and timeout was successfully executed by the treatment team. A digital exam The EC-[id number] (Pedi C) endoscope was introduced through the anus and advanced to the cecum, which was identified by both the appendix and ileocecal valve. The instrument was then slowly withdrawn as the colon was fully examined. COLON FINDINGS: Hemorrhoids thick fold ascending -biopsy. Retroflexed views revealed internal hemorrhoids and Retroflexed views revealed medium internal hemorrhoids The scope was then completely withdrawn from the patient and the procedure terminated. Large amount of vaginal bleeding noted during colonoscopy-was not rectal PROCEDURE WITHDRAWAL TIME:6minutes ADVERSE EVENTS: There were no complications. IMPRESSIONS: 1. Hemorrhoids thick fold ascending -biopsy 2. Retroflexed views revealed internal hemorrhoids 3. Retroflexed views revealed medium internal hemorrhoids 4. Revealed external hemorrhoids -large RECOMMENDATIONS: 1. Await biopsy results. Biopsy results will not be ready for 7-10 days. If you don't hear from us in two weeks, call our office for results. 2. Benefiber 2 tsp daily 3. High fiber diet 4. Probiotics from any [employer] or [employer] food store 5. Yearly rectal exams 6. 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
--- NOTE | 2018-02-15 11:37 | GIPROC ---
[facility] [address] [facility]. [facility], [address] EGD PROCEDURE REPORT EXAM DATE: 02/15/2018 PATIENT NAME: David Live MR #: [id number] BIRTHDATE: 1980 ATTENDING: Donna Villasenor MD ORDER #: [id number] PERSONAL LINES ADVISOR: Klaudia Dimas and Doretha Coelho STATUS: inpatient INDICATIONS: The patient is a 37 yr old female here for an EGD due to anemai, gi bleeding, history of nsaids use PROCEDURE PERFORMED: EGD w/ biopsy MEDICATIONS: Per Anesthesia and None. TOPICAL ANESTHETIC: none CONSENT: The patient understands the risks and benefits of the procedure and understands that these risks include, but are not limited to: sedation, allergic reaction, infection, perforation and/or bleeding. Alternative means of evaluation and treatment include, among others: physical exam, x-rays, and/or surgical intervention. The patient elects to proceed with this endoscopic procedure. medical equipment was checked for proper function. Hand hygiene and appropriate measures for infection prevention was taken. After the risks, benefits and alternatives of the procedure were thoroughly explained, Informed consent was verified, confirmed and timeout was successfully executed by the treatment team. The patient was anesthetized with topical anesthesia and the Pentax EC-[id number] endoscope was introduced through the mouth and advanced to the second portion of the duodenum. Retroflexed views revealed a hiatal hernia The gastroscope was then slowly withdrawn and removed. Duodenitis, superficial ulcers duodenum-biopsy gastritis antrum/superficial ulcers-biopsy. ADVERSE EVENTS: There were no complications. IMPRESSIONS: 1. Duodenitis, superficial ulcers duodenum-biopsy gastritis antrum/superficial ulcers-biopsy 2. Retroflexed views revealed a hiatal hernia RECOMMENDATIONS: 1. Await biopsy results. Biopsy results will not be ready for 7-10 days. If you don't hear from us in two weeks, call our office for biopsy results. 2. Anti-reflux regimen 3. Continue PPI 4. Avoid NSAIDS PATIENT CONDITION: stable DISPOSITION: Inpatient REPEAT EXAM: Return 1 year EGD Donna Villasenor MD eSigned: Donna Villasenor MD 02/15/2018 11:37 AM cc:
[2018-02-15] MEDS ORDERED: Lidocaine PF 1% Inj 5 ML Syringe INFILTRATN ONE (12:00)
[2018-02-15] MEDS: Ferrous Sulfate 325 MG Tablet PO SCH ×2 (13:36→18:15)
[2018-02-15] MEDS ORDERED: Diatrizoate Meglum/Diatrizoate Sod Liq 9 ML UDC PO ONE (18:45)
--- NOTE | 2018-02-15 20:26 | MB ---
cc: Berny Echevarria MD, R John MD DATE: 02/15/2018 REASON FOR CONSULTATION: Vaginal bleeding and severe anemia. HISTORY OF PRESENT ILLNESS: This is a 37-year-old speaking female with no significant past medical history who presents to the emergency department for headache which is throbbing in quality and abnormal rectal bleeding for approximately 8 months. In the emergency department, she was found to be severely anemic with a hemoglobin of 4.8. She has been feeling dizzy and very weak recently. She was admitted to the hospital for the severe anemia. I was asked to see her because during the colonoscopy, they noticed some vaginal bleeding. PAST OBSTETRICAL HISTORY: She had a baby about 1 year ago and reports that her Pap smear was normal. PAST ART DEALER HISTORY: Her periods are every month. They last 6 days. Her heaviest days are the first 2 days, at which time she uses 2-3 pads per day. Then, it tapers off. She has no intermenstrual spotting. No dysmenorrhea. PAST SURGICAL HISTORY: Negative. PAST MEDICAL HISTORY: Negative. FAMILY HISTORY: Negative. 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 She does not smoke ever. She does not drink ever. She does not take drugs. She has not traveled out of the country. ALLERGIES: NO KNOWN DRUG ALLERGIES. CURRENT MEDICATIONS ON ADMISSION: None. PHYSICAL EXAMINATION: GENERAL: Reveals a well-developed, well-nourished female, in no acute distress. VITAL SIGNS: Her temperature is 98.6, respirations are 16. Her pulse is 91, blood pressure is 102/60. HEENT: Normocephalic, atraumatic. NECK: Supple. Trachea is in the midline. HEART: Has a regular rate and rhythm without murmur or gallops. LUNGS: Clear to auscultation bilaterally. There are no wheezes or rhonchi. ABDOMEN: Soft, nontender. No hepatosplenomegaly or masses. PELVIC: External genitalia is normal. The vagina is clean. The cervix on palpation is normal. There are no lesions. The uterus is normal size, shape and consistency, freely mobile. The adnexa is negative for masses. LABORATORY WORKUP: Her initial hemoglobin was 4.8. They have transfused her and her hemoglobin now is 7.9. Her potassium is 3.7, calcium is 8.1, but her albumin is 3.3. Her TSH is normal. ASSESSMENT AND PLAN: Symptomatic anemia, status post transfusion of 3 units of packed red blood cells. This anemia is definitely not from her vaginal bleeding. Her periods are perfectly normal. I would not expect her even to be a little bit anemic with her history. She is bleeding from the rectum for the last 8 months and it seems to be quite a bit per her history. She is not having any signs or symptoms of bleeding diathesis. She has no bleeding at her nose, no bleeding when she brushes her teeth. She has no easy bruising. She needs to be followed up by her gastrointestinal doctor, Dr. Villasenor, who will take care of her rectal bleeding. R. Aayush Echevarria MD RJV/ , 08:03 PM , 08:13 PM
--- NOTE | 2018-02-15 21:33 | CT ---
EXAM DATE: 02/15/2018 9:30 PM EDT AGE/SEX: 37 years / Female INDICATIONS: Cephalgia. CLINICAL DATA: This is the patient's initial encounter. Patient reports that signs and symptoms have been present for 1 day and indicates a pain score of 3/10. MEDICAL/SURGICAL HISTORY: None. None. RADIATION DOSE: 49.17 CTDI (mGy) COMPARISON: No prior exams available for comparison. TECHNIQUE: CT of the head without contrast. Using automated exposure control and adjustment of the mA and/or kV according to patient size, radiation dose was kept as low as reasonably achievable to ob tain optimal diagnostic quality images. DICOM format image data is available electronically for revi ew and comparison. FINDINGS: Cerebrum: The ventricles are normal for age. No evidence of midline shift, mass lesion, hemorrhage or acute infarction. No extraaxial fluid collections are seen. Posterior Fossa: The cerebellum and brainstem are intact. The 4th ventricle is midline. The cerebe llopontine angle is unremarkable. Extracranial: The visualized portion of the orbits is intact. Skull: The calvaria is intact. No evidence of skull fracture. CONCLUSION: 1. Negative CT Head non contrast. 2. No evidence of focal edema, hemorrhage or mass effect. . Electronically signed by: Jordan Harper MD 02/15/2018 9:32 PM EDT
--- NOTE | 2018-02-15 21:38 | CT ---
EXAM DATE: 02/15/2018 9:33 PM EDT AGE/SEX: 37 years / Female INDICATIONS: Weight loss, abnormal stools. CLINICAL DATA: This is the patient's initial encounter. Patient reports that signs and symptoms have been present for 1 day and indicates a pain score of 0/10. MEDICAL/SURGICAL HISTORY: None. None. ORAL CONTRAST: Prescribed oral contrast ingested. RADIATION DOSE: 6.97 CTDI (mGy) COMPARISON: No prior exams available for comparison. TECHNIQUE: Multiple contiguous axial images were obtained through the abdomen and pelvis following b olus infusion of 80 ml Omnipaque 350 (iohexol) nonionic water-soluble contrast as a single exam dos e. Prescribed oral contrast ingested. Using automated exposure control and adjustment of the mA and/ or kV according to patient size, radiation dose was kept as low as reasonably achievable to obtain op timal diagnostic quality images. DICOM format image data is available electronically for review and comparison. FINDINGS: Lower Lungs: The visualized lower lungs are clear. Liver: The liver has a homogeneous density without space-occupying lesion. There is no dilation of th e biliary tree. Spleen: Homogeneous density without enlargement. Pancreas: Unremarkable without mass or calcification. Kidneys: Normal in size and shape. No evidence of mass or hydronephrosis. Adrenal Glands: Unremarkable. Aorta: The aorta and proximal iliac vessels are grossly unremarkable without aneurysmal dilation. Bowel/Mesentery: The bowel loops are grossly unremarkable. The cecum and sigmoid colon have a normal configuration. Abdominal Wall: Intact. Retroperitoneum: No evidence of adenopathy in the retrocrural, para-aortic, or deep pelvic regions. Bladder: Contours are smooth. Reproductive Organs: No abnormal masses or calcifications seen. Inguinal: The inguinal region is unremarkable without evidence of adenopathy. Bony Structures: Unremarkable. CONCLUSION: Negative CT Abdomen and Pelvis with contrast. Electronically signed by: Jordan Harper MD 02/15/2018 9:37 PM EDT
[2018-02-15] MEDS: Hydrocortisone Acetate 25 MG Supp RECTAL SCH (22:30)
[2018-02-16] MEDS: Senna/Docusate Sodium 8.6/50 MG Tablet PO SCH ×2 (04:39→10:17)
[2018-02-16 06:09] LABS: Baso # (Auto) 0.1 th/mm3 (0.0-0.2); Eos # (Auto) 0.3 th/mm3 (0.0-0.4); Eos % (Auto) 4.8 % (0.0-4.0); Hematocrit 25.6 % (35.0-46.0); Hemoglobin 8.5 gm/dL (11.6-15.3); Lymph % (Auto) 28.7 % (9.0-44.0); Mean Corpuscular Hemoglobin 24.7 pg (27.0-34.0); Mean Corpuscular Volume 74.9 fL (80.0-100.0); Mean Platelet Volume 7.6 fL (7.0-11.0); Mono # (Auto) 0.7 th/mm3 (0.0-0.9); Mono % (Auto) 10.5 % (0.0-8.0); Neut # (Auto) 3.8 th/mm3 (1.8-7.7); Platelet Count 212 th/mm3 (150-450); Red Blood Count 3.42 mil/mm3 (4.00-5.30); Red Cell Distribution Width 18.1 % (11.6-17.2); White Blood Count 6.9 th/mm3 (4.0-11.0)
[2018-02-16 06:27] LABS: Anion Gap 10 meq/L (5-15); Blood Urea Nitrogen 6 mg/dL (7-18); Calcium 8.5 mg/dL (8.5-10.1); Carbon Dioxide 23.9 meq/L (21.0-32.0); Chloride 108 meq/L (98-107); Glomerular Filtration Rate Greater Than 89 mL/min (>89); Glucose,Random 87 mg/dL (74-106); Potassium 3.7 meq/L (3.5-5.1); Sodium 142 meq/L (136-145)
[2018-02-16 09:50] VITALS: RESP 17
[2018-02-16] MEDS: Hydrocortisone Acetate 25 MG Supp RECTAL SCH (10:18)
[2018-02-16 12:13] VITALS: BP 105/58; PULSE 75; TEMP 97.7; O2SAT 94
[2018-02-16] MEDS: Ferrous Sulfate 325 MG Tablet PO SCH (15:56)
--- NOTE | 2018-02-16 16:28 | P.PNGI ---
Subjective Interval history: Patient sitting up in chair dressed planning on discharge Family member in room Only denies any abdominal pain nausea or vomiting Current hemoglobin 8.5 <Jennifer Del Cid - Last Filed: 02/16/18 16:29> Physical Exam Vital signs: Vital Signs 02/15/18 20:00 02/16/18 00:00 02/16/18 08:00 Temperature 98.5 F 98 F 97.4 F L Pulse Rate 71 60 78 Respiratory Rate 19 20 17 Blood Pressure 136/69 103/65 92/50 L Pulse Oximetry 100 99 99 02/16/18 12:00 Temperature 97.7 F Pulse Rate 75 Respiratory Rate 17 Blood Pressure 105/58 L Pulse Oximetry 94 L Intake & Output 02/15/18 02/16/18 02/16/18 18:59 06:59 18:59 Intake Total 480 / 480 1610 / 1610 Balance 480 / 480 1610 / 1610 Weight 66.4 kg Intake: IV 1250 / 1250 Oral 480 / 480 360 / 360 Other: # Voids 2 2 Date of Last Bowel Movement 02/15/18 02/15/18 02/15/18 # Bowel Movements 0 - Constitutional no acute distress - Routine HEENT Exam Head: Present: normocephalic ENT: Present: mucous membranes moist - Routine Neck Exam Present: supple - Routine Cardiovascular Exam Present: RRR - Routine Abdominal Exam Present: soft, normoactive bowel sounds <NehemiasErlindaJennifer M - Last Filed: 02/16/18 16:29> Vital signs: Vital Signs 02/16/18 00:00 02/16/18 08:00 02/16/18 12:00 Temperature 98 F 97.4 F L 97.7 F Pulse Rate 60 78 75 Respiratory Rate 20 17 17 Blood Pressure 103/65 92/50 L 105/58 L Pulse Oximetry 99 99 94 L Intake & Output 02/16/18 02/16/18 02/17/18 06:59 18:59 06:59 Intake Total 1610 / 1610 Balance 1610 / 1610 Weight 66.4 kg Intake: IV 1250 / 1250 Oral 360 / 360 Other: # Voids 2 Date of Last Bowel Movement 02/15/18 02/15/18 <Donna Villasenor - Last Filed: 02/16/18 20:35> Results - Labs CBC & Chem 7: 02/16/18 05:19 02/16/18 05:19 Laboratory Results - last 24 hr 02/15/18 02/16/18 02/16/18 16:00 05:19 05:19 WBC 6.9 RBC 3.42 L Hgb 8.5 L Hct 23.9 L 25.6 L MCV 74.9 L MCH 24.7 L MCHC 33.0 RDW 18.1 H Plt Count 212 MPV 7.6 Neut % (Auto) 55.0 Lymph % (Auto) 28.7 [place] % (Auto) 10.5 H Eos % (Auto) 4.8 H Baso % (Auto) 1.0 Neut # (Auto) 3.8 Lymph # (Auto) 2.0 [place] # (Auto) 0.7 Eos # (Auto) 0.3 Baso # (Auto) 0.1 WBC Differential . Differential Comment Auto diff final Sodium 142 Potassium 3.7 Chloride 108 H Carbon Dioxide 23.9 Anion Gap 10 BUN 6 L Creatinine 0.58 Estimated GFR Greater than 89 Random Glucose 87 Calcium 8.5 Magnesium 2.0 - Imaging Impressions Abdomen/Pelvis CT 02/15/18 00:00 CONCLUSION: Negative CT Abdomen and Pelvis with contrast. Head CT 02/15/18 00:00 CONCLUSION: 1. Negative CT Head non contrast. 2. No evidence of focal edema, hemorrhage or mass effect. . - Procedures EGD and cscope <Jennifer Del Cid - Last Filed: 02/16/18 16:29> - Labs CBC & Chem 7: 02/16/18 05:19 02/16/18 05:19 Laboratory Results - last 24 hr 02/16/18 02/16/18 05:19 05:19 WBC 6.9 RBC 3.42 L Hgb 8.5 L Hct 25.6 L MCV 74.9 L MCH 24.7 L MCHC 33.0 RDW 18.1 H Plt Count 212 MPV 7.6 Neut % (Auto) 55.0 Lymph % (Auto) 28.7 [place] % (Auto) 10.5 H Eos % (Auto) 4.8 H Baso % (Auto) 1.0 Neut # (Auto) 3.8 Lymph # (Auto) 2.0 [place] # (Auto) 0.7 Eos # (Auto) 0.3 Baso # (Auto) 0.1 WBC Differential . Differential Comment Auto diff final Sodium 142 Potassium 3.7 Chloride 108 H Carbon Dioxide 23.9 Anion Gap 10 BUN 6 L Creatinine 0.58 Estimated GFR Greater than 89 Random Glucose 87 Calcium 8.5 Magnesium 2.0 - Imaging Impressions Abdomen/Pelvis CT 02/15/18 00:00 CONCLUSION: Negative CT Abdomen and Pelvis with contrast. Head CT 02/15/18 00:00 CONCLUSION: 1. Negative CT Head non contrast. 2. No evidence of focal edema, hemorrhage or mass effect. . <Donna Villasenor - Last Filed: 02/16/18 20:35> Assessment and Plan - Plan INTERPRETATION SERVICES USED FOR THIS ENCOUNTER Assessment: - Anemia with reports of rectal bleeding- microcytic, hypochromic On admission H/H 4.8/15.5 Denies history of anemia Pt reports rectal bleeding x 8 months, hard stools, straining, has 2-3 BMs a day. Associated lower abdominal and back pain with BMs. Complaining of pencil thin stools. Also complaining of nausea, denies emesis. Denies heartburn. Weight loss since September 2016, states this is intentional after having a baby. Family history significant for sister who from colon cancer and states both of her parents have "colon issues" Has never had EGD or colonoscopy Denies ETOH, smoking, and illicit drug use. Denies NSAID use other than taking Ibuprofen yesterday for a headache 02/16/18, current hemoglobin 8.5, no current nausea vomiting or abdominal pain. Status post EGD colonoscopy on 02/15/2018. Colonoscopy shows hemorrhoids medium internal large external. Noted vaginal bleeding during colonoscopy non-rectal. EGD showed duodenitis with superficial ulcers in the duodenum biopsies performed. Gastritis antrum, superficial ulcers , hiatal hernia. CT scan negative. If patient discharges follow-up with GI outpatient hospital follow-up. Plan: Diet as tolerated Protonix, antireflux regimen Avoid NSAIDs Return EGD in 1 year Fiber with high-fiber diet Probiotics Yearly rectal exams, rectal suppository twice a day Monitor hemoglobin Pt seen per myself and Dr. Villasenor, note was written on her behalf <Jennifer Del Cid - Last Filed: 02/16/18 16:29> - Attending Attestation agree with above <Bratu,Donna - Last Filed: 02/16/18 20:35>
--- NOTE | 2018-02-16 16:29 | P.DS ---
Date of admission: 02/14/18 01:50 Primary care physician: No Primary Care Physician Brief History from admission: 37-year-old female with no significant past medical history presents the emergency department for the evaluation of headache and abnormal vaginal bleeding for approximately 8 months. The patient reports that her headache is in the front top of her head. She reports it is sharp and throbbing in quality. She states it is been present for the last 24 hours. The patient also reports that she has been feeling dizzy and weak. She endorses associated lightheadedness. Her hemoglobin was found to be 4.8. The patient does not have a primary care physician. DS: Medications - Discharge Medications Prescriptions: hydrocortisone acetate [Anusol-HC] 25 mg [place] BID #60 ea pantoprazole 40 mg PO DAILY #30 tab sennosides-docusate sodium [Senna Plus] 1 tab PO BID #60 tab DS: Summary Hospital Course: Translated by Ankush rn [employer] [place] [id number] 37 years old female came in with dizziness, weakness Severe Symptomatic Iron deficiency anemia S/P 3 units RBC. Improved continue iron GI bleed. Patient reports of intermittent hematochezia when she has bowel movement for the past 8 months. Colonoscopy shows hemorrhoids. Continue hemorrhoidal suppository, high-fiber diet and avoid constipation. Patient to see colorectal surgery discussed with GI. Status post [employer] evaluation, does not believe patient has abnormal [employer] bleeding Duodenitis with superficial ulcers duodenum and gastritis antrum/superficial ulcers s/p biopsy. Follow-up biopsy results. Antireflux mechanisms, PPI and avoid NSAIDs. No tobacco or alcohol use. Chronic headaches- no associated visual disturbances. Head CT negative Low risk for DVT - Time Spent with Patient Total time spent providing and/or coordinating discharge services: Greater than 30 minutes - Quality: VTE Deep Vein Thrombosis/Pulmonary Embolism Present on Admission: No Exam Vital signs: Vital Signs 02/15/18 20:00 02/16/18 00:00 02/16/18 08:00 Temperature 98.5 F 98 F 97.4 F L Pulse Rate 71 60 78 Respiratory Rate 19 20 17 Blood Pressure 136/69 103/65 92/50 L Pulse Oximetry 100 99 99 02/16/18 12:00 Temperature 97.7 F Pulse Rate 75 Respiratory Rate 17 Blood Pressure 105/58 L Pulse Oximetry 94 L Intake & Output 02/15/18 02/16/18 02/16/18 18:59 06:59 18:59 Intake Total 480 / 480 1610 / 1610 Balance 480 / 480 1610 / 1610 Weight 66.4 kg Intake: IV 1250 / 1250 Oral 480 / 480 360 / 360 Other: # Voids 2 2 Date of Last Bowel Movement 02/15/18 02/15/18 02/15/18 # Bowel Movements 0 Narrative: awake and alsrt, oriented x 3, south su[place]ese speaking anicteric lungs- clear regular rhythm abdomen soft, good bowel sounds, no tenderness, no guarding extremities no edema neuro exam- CN intact motor 5/5 no sensory deficits Results Procedures completed during hospitalization: EGD and cscope Labs on day of discharge: Labs from last 24 hours 02/16/18 02/16/18 02/15/18 05:19 05:19 16:00 WBC 6.9 RBC 3.42 L Hgb 8.5 L Hct 25.6 L MCV 74.9 L MCH 24.7 L MCHC 33.0 RDW 18.1 H Plt Count 212 MPV 7.6 Neut % (Auto) 55.0 Lymph % (Auto) 28.7 [place] % (Auto) 10.5 H Eos % (Auto) 4.8 H Baso % (Auto) 1.0 Neut # (Auto) 3.8 Lymph # (Auto) 2.0 [place] # (Auto) 0.7 Eos # (Auto) 0.3 Baso # (Auto) 0.1 WBC Differential . Differential Comment Auto diff final Sodium 142 Potassium 3.7 Chloride 108 H Carbon Dioxide 23.9 Anion Gap 10 BUN 6 L Creatinine 0.58 Estimated GFR Greater than 89 Random Glucose 87 Calcium 8.5 Magnesium 2.0 IgA Pending Tiss Transglutamin IgA Pending Celiac Disease Interp Pending 02/15/18 16:00 WBC RBC Hgb Hct 23.9 L MCV MCH MCHC RDW Plt Count MPV Neut % (Auto) Lymph % (Auto) [place] % (Auto) Eos % (Auto) Baso % (Auto) Neut # (Auto) Lymph # (Auto) [place] # (Auto) Eos # (Auto) Baso # (Auto) WBC Differential Differential Comment Sodium Potassium Chloride Carbon Dioxide Anion Gap BUN Creatinine Estimated GFR Random Glucose Calcium Magnesium IgA Tiss Transglutamin IgA Celiac Disease Interp - Impressions ITS Impressions Pelvis Ultrasound 02/14/18 00:00 CONCLUSION: 1. Myometrium is heterogeneous and hyperemic. Findings are nonspecific. No discrete mass lesions. 2. Both ovaries are sonographically normal. No free fluid. Abdomen/Pelvis CT 02/15/18 00:00 CONCLUSION: Negative CT Abdomen and Pelvis with contrast. Head CT 02/15/18 00:00 CONCLUSION: 1. Negative CT Head non contrast. 2. No evidence of focal edema, hemorrhage or mass effect. . Discharge Plan - Discharge Disposition Patient Disposition: 01 Discharge Home - Discharge Condition Condition: Stable - Discharge Order Discharge Orders: Discharge Order (Routine); Ordered 02/16/18 Ordered By: Chai Saenz - Discharge Details Anticipated Discharge Date: 02/14/18 - Physicians Team Primary Care Provider: Primary Care Frani,Gaby Attending Provider: Chai Saenz Other Providers: Donna Villasenor MD ; Stefanie Gomez MD
[2018-02-19 23:52] LABS: IgA Serum 148 mg/dL (81-463); Tissue Transglutaminase Ab IgG ND U/mL (())
== END 2018-02-16 22:46 | disposition home or self-care (01) ==
LOC: NEPD 19:44 → NEDA 02-14 01:50 → N07 02-14 11:24
PROVIDERS: ADMIT Internal Medicine; ATTEND Internal Medicine
PROC: PANENDO (2018-02-15 10:59)
PROC: COLONOS (2018-02-15 10:59)

== ENCOUNTER 2018-03-22 11:10 | Inpatient (IN) ==
[2018-03-22 12:22] LABS: Baso # (Auto) 0.1 th/mm3 (0.0-0.2); Baso % (Auto) 1.4 % (0.0-2.0); Eos # (Auto) 0.1 th/mm3 (0.0-0.4); Eos % (Auto) 1.2 % (0.0-4.0); Lymph # (Auto) 1.3 th/mm3 (1.0-4.8); Mean Corpuscular Hemoglobin 22.6 pg (27.0-34.0); Mean Corpuscular Volume 73.5 fL (80.0-100.0); Mean Platelet Volume 7.1 fL (7.0-11.0); Mono # (Auto) 0.5 th/mm3 (0.0-0.9); Mono % (Auto) 10.1 % (0.0-8.0); Neut # (Auto) 3.4 th/mm3 (1.8-7.7); Neut % (Auto) 63.3 % (16.0-70.0); Platelet Count 316 th/mm3 (150-450); Red Blood Count 2.74 mil/mm3 (4.00-5.30); Red Cell Distribution Width 19.8 % (11.6-17.2); White Blood Count 5.4 th/mm3 (4.0-11.0)
[2018-03-22 12:25] LABS: Mean Corpuscular HGB Conc 30.8 % (32.0-36.0)
[2018-03-22 12:28] LABS: Hematocrit 20.1 % (35.0-46.0); Hemoglobin 6.2 gm/dL (11.6-15.3)
[2018-03-22 13:05] LABS: Anion Gap 6 meq/L (5-15); Blood Urea Nitrogen 8 mg/dL (7-18); Calcium 8.1 mg/dL (8.5-10.1); Chloride 108 meq/L (98-107); Glomerular Filtration Rate Greater Than 89 mL/min (>89); Glucose,Random 90 mg/dL (74-106); Potassium 3.8 meq/L (3.5-5.1); Sodium 141 meq/L (136-145)
--- NOTE | 2018-03-22 15:32 | ED ---
HPI General Chief complaint: Recheck/Abnormal Lab/Rx Stated complaint: Medical Complaint Time Seen by Provider: 03/22/18 11:43 Source: patient Mode of arrival: ambulatory Limitations: no limitations History of Present Illness HPI Narrative: 37-year-old patient is Liberian-speaking and gastritis was used. She reports hemorrhoids with rectal bleeding every day. There is blood in the stool and red toilet bowl water. Duration has been months. She was sent here by Dr. Diane 2. Colonoscopy endoscopy was performed in January which revealed gastritis and internal and external hemorrhoids. Patient was sent here today by Dr. Arthur office because outside blood work was concerning for acute anemia. The patient denies chest pain shortness of breath. Timing constant. Severity moderate. Related Data Previous Rx's Medication Instructions Recorded ferrous sulfate [FeroSul] 325 mg PO DAILY #30 tab 02/16/18 hydrocortisone acetate [Anusol-HC] 25 mg [place] BID #60 ea 02/16/18 pantoprazole 40 mg PO DAILY #30 tab 02/16/18 sennosides-docusate sodium [Senna 1 tab PO BID #60 tab 02/16/18 Plus] Allergies Allergy/AdvReac Type Severity Reaction Status Date / Time No Known Allergies Allergy Unverified 02/14/18 07:48 Review of Systems ROS: all other systems reviewed are negative PMFSH Medical History Medical History Hemorrhoids (Acute) Anemia (Acute) Social History Social History Substance History: No History of Abuse Second Hand Smoke Exposure: No Smoking Status: Never smoker How Often Do You Have a Drink Containing Alcohol: Never Recent Travel in [facility] within the Last 8 Weeks: No Recent Out of Country Travel within the Last 8 Weeks: No Immunization History Tetanus Immunization: Unsure Hx Influenza Vaccine This Season: No Exam Narrative Exam Narrative: GENERAL: 37-year-old female pleasant well-nourished well- developed no acute distress Liberian-speaking RECTAL: Hemoccult was performed and was positive. One very small external hemorrhoid is present as well as multiple internal hemorrhoids. No mass in the rectal vault present. SKIN: Focused skin assessment warm/dry. HEAD: Atraumatic. Normocephalic. EYES: Pupils equal and round. No scleral icterus. No injection or drainage. ENT: No nasal bleeding or discharge. Mucous membranes pink and moist. NECK: Trachea midline. No JVD. CARDIOVASCULAR: Regular rate and rhythm. No murmur appreciated. RESPIRATORY: No accessory muscle use. Clear to auscultation. Breath sounds equal bilaterally. GASTROINTESTINAL: Abdomen soft, non-tender, nondistended. Hepatic and splenic margins not palpable. MUSCULOSKELETAL: No obvious deformities. No clubbing. No cyanosis. No edema. NEUROLOGICAL: Awake and alert. No obvious cranial nerve deficits. Motor grossly within normal limits. Normal speech. PSYCHIATRIC: Appropriate mood and affect; insight and judgment normal. Procedures Hemaprompt Stool Procedural Steps Taken: specimen placed in appropriate test area, developer placed on specimen and control areas and controls appropriately positive and negative Hemaprompt Stool Result: positive Course Initial Documented Vital Signs Temperature 97.5 F L 03/22/18 11:20 Pulse Rate 89 03/22/18 11:20 Respiratory Rate 16 03/22/18 11:20 Blood Pressure 116/56 L 03/22/18 11:20 Pulse Oximetry 100 03/22/18 11:20 Last Documented Vital Signs Temperature 97.6 F 03/24/18 08:00 Pulse Rate 66 03/24/18 08:00 Respiratory Rate 18 03/24/18 08:00 Blood Pressure 97/63 L 03/24/18 08:00 Pulse Oximetry 96 03/24/18 08:00 Medical Decision Making MDM Narrative Medical decision making narrative: Patient is anemic. PRBCs ordered. Case discussed with Dr. Corado of colorectal surgery. Case discussed with Dr. Kimball for the hospitalist service. Medical Screen Exam Complete: Yes Emergency Medical Condition: Yes Lab Data Lab results reviewed: Yes I reviewed the patient's lab results. Result diagrams: 03/24/18 04:16 03/24/18 04:16 Lab Results 03/22/18 03/22/18 03/22/18 Range/Units 11:35 11:35 11:35 WBC 5.4 (4.0-11.0) th/mm3 RBC 2.74 L (4.00-5.30) mil/mm3 Hgb 6.2 L* (11.6-15.3) gm/dL Hct 20.1 L* (35.0-46.0) % MCV 73.5 L (80.0-100.0) fL MCH 22.6 L (27.0-34.0) pg MCHC 30.8 L (32.0-36.0) % RDW 19.8 H (11.6-17.2) % Plt Count 316 (150-450) th/mm3 MPV 7.1 (7.0-11.0) fL Prelim Diff (Auto) Neut % (Auto) 63.3 (16.0-70.0) % Lymph % (Auto) 24.0 (9.0-44.0) % [place] % (Auto) 10.1 H (0.0-8.0) % Eos % (Auto) 1.2 (0.0-4.0) % Baso % (Auto) 1.4 (0.0-2.0) % Neut # (Auto) 3.4 (1.8-7.7) th/mm3 Lymph # (Auto) 1.3 (1.0-4.8) th/mm3 [place] # (Auto) 0.5 (0.0-0.9) th/mm3 Eos # (Auto) 0.1 (0.0-0.4) th/mm3 Baso # (Auto) 0.1 (0.0-0.2) th/mm3 WBC Differential . Differential Comment Auto diff final PT (9.8-11.6) sec INR Ratio APTT (24.3-30.1) sec Sodium 141 (136-145) meq/L Potassium 3.8 (3.5-5.1) meq/L Chloride 108 H (98-107) meq/L Carbon Dioxide 27.0 (21.0-32.0) meq/L Anion Gap 6 (5-15) meq/L BUN 8 (7-18) mg/dL Creatinine 0.65 (0.50-1.00) mg/dL Estimated GFR Greater than 89 (>89) mL/min Random Glucose 90 (74-106) mg/dL Calcium 8.1 L (8.5-10.1) mg/dL Blood Type A Positive Antibody Screen Negative MTS Gel Crossmatch 03/22/18 03/22/18 03/23/18 Range/Units 12:37 15:58 05:37 WBC (4.0-11.0) th/mm3 RBC (4.00-5.30) mil/mm3 Hgb (11.6-15.3) gm/dL Hct (35.0-46.0) % MCV (80.0-100.0) fL MCH (27.0-34.0) pg MCHC (32.0-36.0) % RDW (11.6-17.2) % Plt Count (150-450) th/mm3 MPV (7.0-11.0) fL Prelim Diff (Auto) Neut % (Auto) (16.0-70.0) % Lymph % (Auto) (9.0-44.0) % [place] % (Auto) (0.0-8.0) % Eos % (Auto) (0.0-4.0) % Baso % (Auto) (0.0-2.0) % Neut # (Auto) (1.8-7.7) th/mm3 Lymph # (Auto) (1.0-4.8) th/mm3 [place] # (Auto) (0.0-0.9) th/mm3 Eos # (Auto) (0.0-0.4) th/mm3 Baso # (Auto) (0.0-0.2) th/mm3 WBC Differential Differential Comment PT 10.2 (9.8-11.6) sec INR 1.0 Ratio APTT 21.8 L (24.3-30.1) sec Sodium (136-145) meq/L Potassium (3.5-5.1) meq/L Chloride (98-107) meq/L Carbon Dioxide (21.0-32.0) meq/L Anion Gap (5-15) meq/L BUN (7-18) mg/dL Creatinine (0.50-1.00) mg/dL Estimated GFR (>89) mL/min Random Glucose (74-106) mg/dL Calcium (8.5-10.1) mg/dL Blood Type Antibody Screen MTS Gel Crossmatch See Detail See Detail 03/23/18 03/24/18 03/24/18 Range/Units 11:20 04:16 04:16 WBC 7.9 (4.0-11.0) th/mm3 RBC 3.62 L (4.00-5.30) mil/mm3 Hgb 8.9 L D 9.0 L (11.6-15.3) gm/dL Hct 26.5 L 27.2 L (35.0-46.0) % MCV 75.1 L (80.0-100.0) fL MCH 24.8 L (27.0-34.0) pg MCHC 33.0 (32.0-36.0) % RDW 19.5 H (11.6-17.2) % Plt Count 281 (150-450) th/mm3 MPV 7.3 (7.0-11.0) fL Prelim Diff (Auto) Neut % (Auto) 58.0 (16.0-70.0) % Lymph % (Auto) 28.3 (9.0-44.0) % [place] % (Auto) 9.9 H (0.0-8.0) % Eos % (Auto) 2.9 (0.0-4.0) % Baso % (Auto) 0.9 (0.0-2.0) % Neut # (Auto) 4.6 (1.8-7.7) th/mm3 Lymph # (Auto) 2.2 (1.0-4.8) th/mm3 [place] # (Auto) 0.8 (0.0-0.9) th/mm3 Eos # (Auto) 0.2 (0.0-0.4) th/mm3 Baso # (Auto) 0.1 (0.0-0.2) th/mm3 WBC Differential . Differential Comment Auto diff final PT (9.8-11.6) sec INR Ratio APTT (24.3-30.1) sec Sodium 143 (136-145) meq/L Potassium 3.6 (3.5-5.1) meq/L Chloride 108 H (98-107) meq/L Carbon Dioxide 26.0 (21.0-32.0) meq/L Anion Gap 9 (5-15) meq/L BUN 11 (7-18) mg/dL Creatinine 0.65 (0.50-1.00) mg/dL Estimated GFR Greater than 89 (>89) mL/min Random Glucose 81 (74-106) mg/dL Calcium 8.3 L (8.5-10.1) mg/dL Blood Type Antibody Screen MTS Gel Crossmatch Discharge Plan Discharge Disposition Patient Disposition: 30 Still Patient Physicians Team ED Provider: Pravin Nguyễn Primary Care Provider: Primary Care Gaby Bartlett Attending Provider: Tamiko Flores Other Providers: Tino Corado Discharge Interventions Interventions: ED Discharge Assessment Last Done: 03/22/18 15:31 Status ED Status: Left Department Discharge Information Discharge Date/Time: 03/22/18 15:10
--- NOTE | 2018-03-22 15:55 | P.HP ---
History of Present Illness Primary Care Physician: No Primary Care Physician History of Present Illness: 37-year-old female being admitted for acute anemia secondary to blood loss secondary to bleeding hemorrhoids. Patient was in usual state of health until about 1 week ago when she began experiencing daily bright red blood per bowel movement. Reports having painful bowel movements this week. Denies having any nausea or vomiting. Denies any vaginal bleeding. 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 The only other symptom she endorses lightheadedness and a headache. She reports being compliant with the medical regimen for her hemorrhoids since her last hospitalization for GI bleeding secondary to hemorrhoids, entailing twice daily MiraLAX and suppository as well as cortisone cream. Emergency department her hemoglobin was noted to be in the low 6s, ER physician informed me that the patient likely has internal hemorrhoids based upon his examination. Patient reports that digital rectal examination was quite painful. Review of Systems All other systems reviewed negative except as stated in HPI PMFSH - History History Provided By: Patient - Medical History Medical History: Medical History (Last Updated 03/22/18 @ 15:56 by Curt Kimball MD) Hemorrhoids (Acute) Anemia (Acute) - Family History Family History: Family History (Last Reviewed 03/22/18 @ 15:52 by Curt Kimball MD) Other Family history normal - Social History I have reviewed the patient's Social History: Yes - Tobacco History Second Hand Smoke Exposure: No Smoking Status: Never smoker - Alcohol History How Often Do You Have a Drink Containing Alcohol: Never - Substance Use History Substance History: No History of Abuse - Travel History Recent Travel in the [place] Within the Last 8 Weeks: No Recent Travel Out of the Country Within the Last 8 Weeks: No - Immunization History Tetanus Immunization: Unsure Hx Influenza Vaccine This Season: No Medications and Allergies Active Medications: Active Medications Sodium Chloride (Ns Flush) 2 ml IV.FLUSH BID VIVEK Sodium Chloride (Ns Flush) 2 ml IV.FLUSH PRN PRN PRN Reason: FLUSH AFTER USING IV ACCESS Allergies Allergy/AdvReac Type Severity Reaction Status Date / Time No Known Allergies Allergy Unverified 02/14/18 07:48 Exam Vital signs: Vital Signs 03/22/18 11:20 03/22/18 12:00 03/22/18 14:07 Temperature 97.5 F L 99.1 F Pulse Rate 89 80 85 Respiratory Rate 16 17 20 Blood Pressure 116/56 L 125/78 112/58 L Pulse Oximetry 100 100 98 03/22/18 14:21 03/22/18 14:24 03/22/18 14:45 Temperature 99.2 F 99.1 F Pulse Rate 79 74 74 Respiratory Rate 16 16 20 Blood Pressure 92/54 L 100/63 93/58 L Pulse Oximetry 100 100 100 03/22/18 15:00 Temperature Pulse Rate 74 Respiratory Rate 16 Blood Pressure 96/57 L Pulse Oximetry 100 Intake & Output 03/21/18 03/22/18 03/22/18 18:59 06:59 18:59 Intake Total 0 / 0 Balance 0 / 0 Weight 62.596 kg Intake: Intake (Blood Product) Amt 0 / 0 Rbc As-3 Leukoreduced Unit 0 / 0 [id number] Narrative: VS: afebrile GENERAL: Young female, lying in bed, no acute distress SKIN: Warm and dry. EYES: No scleral icterus. No injection or drainage. ENT: No nasal bleeding or discharge. CARDIOVASCULAR: Regular rate and rhythm. no murmurs RESPIRATORY: No accessory muscle use. Clear to auscultation. Breath sounds equal bilaterally. GASTROINTESTINAL: Abdomen soft, non-tender, nondistended. Extremities: No clubbing, cyanosis, or edema. No obvious deformities. MUSCULOSKELETAL: adequate muscle bulk and tone for age and habitus NEUROLOGICAL: Awake and alert. No obvious cranial nerve deficits. No facial droop nor slurred speech noted. PSYCHIATRIC: Appropriate mood and affect; insight and judgment normal. Results - Labs CBC & Chem 7: 03/22/18 11:35 03/22/18 11:35 Labs: Laboratory Results - last 24 hr 03/22/18 03/22/18 03/22/18 11:35 11:35 11:35 WBC 5.4 RBC 2.74 L Hgb 6.2 L* Hct 20.1 L* MCV 73.5 L MCH 22.6 L MCHC 30.8 L RDW 19.8 H Plt Count 316 MPV 7.1 Prelim Diff (Auto) Neut % (Auto) 63.3 Lymph % (Auto) 24.0 [place] % (Auto) 10.1 H Eos % (Auto) 1.2 Baso % (Auto) 1.4 Neut # (Auto) 3.4 Lymph # (Auto) 1.3 [place] # (Auto) 0.5 Eos # (Auto) 0.1 Baso # (Auto) 0.1 WBC Differential . Differential Comment Auto diff final Sodium 141 Potassium 3.8 Chloride 108 H Carbon Dioxide 27.0 Anion Gap 6 BUN 8 Creatinine 0.65 Estimated GFR Greater than 89 Random Glucose 90 Calcium 8.1 L Blood Type A Positive Antibody Screen Negative MTS Gel Crossmatch 03/22/18 12:37 WBC RBC Hgb Hct MCV MCH MCHC RDW Plt Count MPV Prelim Diff (Auto) Neut % (Auto) Lymph % (Auto) [place] % (Auto) Eos % (Auto) Baso % (Auto) Neut # (Auto) Lymph # (Auto) [place] # (Auto) Eos # (Auto) Baso # (Auto) WBC Differential Differential Comment Sodium Potassium Chloride Carbon Dioxide Anion Gap BUN Creatinine Estimated GFR Random Glucose Calcium Blood Type Antibody Screen MTS Gel Crossmatch See Detail Caprini VTE Risk Assessment Caprini VTE Risk Assessment: No/Low Risk (score <= 1) Caprini Risk Assessment Model: Point Value = 1 Point Value = 2 Point Value = 3 Point Value = 5 Age 41-60 Minor surgery BMI > 25 kg/m2 Swollen legs Varicose veins or History of unexplained or recurrent spontaneous Oral contraceptives or hormone replacement Sepsis (< 1 month) Serious lung disease, including pneumonia (< 1 month) Abnormal pulmonary function Acute myocardial infarction Congestive heart failure (< 1 month) History of inflammatory bowel disease Medical patient at bed rest Age 61-74 Arthroscopic surgery Major open surgery (> 45 min) Laparoscopic surgery (> 45 min) Malignancy Confined to bed (> 72 hours) Immobilizing plaster cast Central venous access Age >= 75 History of VTE Family history of VTE Factor V Leiden Prothrombin [id number] Lupus anticoagulant Anticardiolipin antibodies Elevated serum homocysteine Heparin-induced thrombocytopenia Other congenital or acquired thrombophilia Stroke (< 1 month) Elective arthroplasty Hip, pelvis, or leg fracture Acute spinal cord injury (< 1 month) Prophylaxis Regimen: Total Risk Factor Score Risk Level Prophylaxis Regimen 0-1 Low Early ambulation 2 Moderate Order ONE of the following: *Sequential Compression Device (SCD) *Heparin 5000 units SQ BID 3-4 Higher Order ONE of the following medications: *Heparin 5000 units SQ TID *Enoxaparin/Lovenox 40 mg SQ daily (WT < 150 kg, CrCl > 30 mL/min) *Enoxaparin/Lovenox 30 mg SQ daily (WT < 150 kg, CrCl > 10-29 mL/min) *Enoxaparin/Lovenox 30 mg SQ BID (WT < 150 kg, CrCl > 30 mL/min) AND/OR *Sequential Compression Device (SCD) 5 or more Highest Order ONE of the following medications: *Heparin 5000 units SQ TID (Preferred with Epidurals) *Enoxaparin/Lovenox 40 mg SQ daily (WT < 150 kg, CrCl > 30 mL/min) *Enoxaparin/Lovenox 30 mg SQ daily (WT < 150 kg, CrCl > 10-29 mL/min) *Enoxaparin/Lovenox 30 mg SQ BID (WT < 150 kg, CrCl > 30 mL/min) AND *Sequential Compression Device (SCD) Assessment and Plan - Plan 37-year-old female being admitted for acute anemia secondary to bright red blood per rectum Acute anemia Have at least 2 units of PRBCs to be transfused Bright red blood per rectum Likely secondary to internal hemorrhoids given pain -Colorectal surgery consulted Constipation/hemorrhoids -daily miralax d/w pts' GI, recommending CRC to evaluate pt since a referral had been made as an oupt already at recent office visit.
[2018-03-22] MEDS ORDERED: Sod Chloride 0.9% Inj 1,000 ML IV.SIG SCH (16:00)
[2018-03-22] MEDS ORDERED: Sodium Chlor 0.9% Inj 250 ML IV.SIG SCH (16:00)
[2018-03-22] MEDS: Polyethylene Glycol 3350 17 GM Packet PO SCH (17:03)
[2018-03-23 07:07] LABS: Activated Partial Thrombo Time 21.8 sec (24.3-30.1); Prothrombin Time 10.2 sec (9.8-11.6)
--- NOTE | 2018-03-23 08:54 | P.PN ---
Subjective Interval history: The patient is in bed she does not appear in acute distress. However says she is dizzy and she has headache. Has she had a large bowel movement bloody in the morning. No chest pain or shortness of breath. No nausea vomiting. Physical Exam Vital signs: Vital Signs 03/22/18 11:20 03/22/18 12:00 03/22/18 14:07 Temperature 97.5 F L 99.1 F Pulse Rate 89 80 85 Respiratory Rate 16 17 20 Blood Pressure 116/56 L 125/78 112/58 L Pulse Oximetry 100 100 98 03/22/18 14:21 03/22/18 14:24 03/22/18 14:45 Temperature 99.2 F 99.1 F Pulse Rate 79 74 74 Respiratory Rate 16 16 20 Blood Pressure 92/54 L 100/63 93/58 L Pulse Oximetry 100 100 100 03/22/18 15:00 03/22/18 16:00 03/22/18 20:00 Temperature 97.2 F L 98.0 F Pulse Rate 74 90 75 Respiratory Rate 16 16 18 Blood Pressure 96/57 L 93/54 L 100/63 Pulse Oximetry 100 95 100 03/22/18 22:16 03/22/18 22:24 03/22/18 22:32 Temperature 98 F 98.1 F Pulse Rate 79 75 Respiratory Rate 18 18 Blood Pressure 95/57 L 99/55 L Pulse Oximetry 99 99 99 03/23/18 00:00 03/23/18 02:17 03/23/18 08:00 Temperature 98.2 F 97.4 F L 97.7 F Pulse Rate 78 70 68 Respiratory Rate 18 18 18 Blood Pressure 96/49 L 99/59 L 109/55 L Pulse Oximetry 97 99 99 Intake & Output 03/22/18 03/23/18 03/23/18 18:59 06:59 18:59 Intake Total 0 / 0 1000 / 1000 200 / 200 Balance 0 / 0 1000 / 1000 200 / 200 Weight 62.596 kg 64.3 kg Intake: IV 1000 / 1000 200 / 200 NS Inj 1,000 ML @ Wide Open IV. 1000 / 1000 SIG BOLUS VIVEK Rx#:[id number] NS Inj 250 ML @ 15 mls/hr IV. 200 / 200 SIG ONCE VIVEK Rx#:[id number] Intake (Blood Product) Amt 0 / 0 0 / 0 Rbc As-3 Leukoreduced Unit 0 / 0 [id number] Rbc As-3 Leukoreduced Unit 0 / 0 [id number] Other: # Voids 2 Narrative: GENERAL: 37 yo male, in nad. CARDIOVASCULAR: Regular rate and rhythm. RESPIRATORY: No accessory muscle use. Clear to auscultation. Breath sounds equal bilaterally. GASTROINTESTINAL: Abdomen soft, non-tender, nondistended. Hepatic and splenic margins not palpable. MUSCULOSKELETAL: Extremities without clubbing, cyanosis, or edema. No obvious deformities. NEUROLOGICAL: Awake and alert. No obvious cranial nerve deficits. Motor grossly within normal limits. Five out of 5 muscle strength in the arms and legs. Normal speech. PSYCHIATRIC: Appropriate mood and affect; insight and judgment normal. Results - Labs CBC & Chem 7: 03/23/18 11:20 03/22/18 11:35 Laboratory Results - last 24 hr 03/22/18 03/22/18 03/22/18 11:35 11:35 11:35 WBC 5.4 RBC 2.74 L Hgb 6.2 L* Hct 20.1 L* MCV 73.5 L MCH 22.6 L MCHC 30.8 L RDW 19.8 H Plt Count 316 MPV 7.1 Prelim Diff (Auto) Neut % (Auto) 63.3 Lymph % (Auto) 24.0 [place] % (Auto) 10.1 H Eos % (Auto) 1.2 Baso % (Auto) 1.4 Neut # (Auto) 3.4 Lymph # (Auto) 1.3 [place] # (Auto) 0.5 Eos # (Auto) 0.1 Baso # (Auto) 0.1 WBC Differential . Differential Comment Auto diff final PT INR APTT Sodium 141 Potassium 3.8 Chloride 108 H Carbon Dioxide 27.0 Anion Gap 6 BUN 8 Creatinine 0.65 Estimated GFR Greater than 89 Random Glucose 90 Calcium 8.1 L Blood Type A Positive Antibody Screen Negative MTS Gel Crossmatch 03/22/18 03/22/18 03/23/18 12:37 15:58 05:37 WBC RBC Hgb Hct MCV MCH MCHC RDW Plt Count MPV Prelim Diff (Auto) Neut % (Auto) Lymph % (Auto) [place] % (Auto) Eos % (Auto) Baso % (Auto) Neut # (Auto) Lymph # (Auto) [place] # (Auto) Eos # (Auto) Baso # (Auto) WBC Differential Differential Comment PT 10.2 INR 1.0 APTT 21.8 L Sodium Potassium Chloride Carbon Dioxide Anion Gap BUN Creatinine Estimated GFR Random Glucose Calcium Blood Type Antibody Screen MTS Gel Crossmatch See Detail See Detail Assessment and Plan - Plan 37-year-old female being admitted for acute anemia secondary to bright red blood per rectum Acute anemia with HGB of 6.2 on admission Transfused 2 unit of blood H/H is stable . Continue to monitor and transfuse if HGB < 7 or if symptomatic Bright red blood per rectum Likely secondary to internal hemorrhoids given pain -Colorectal surgery consulted Constipation/hemorrhoids -daily miralax -Bowel regimen. Discussed at length with the patient dietary changes. GI recommends CRC to evaluate pt since a referral had been made as an oupt already at recent office visit.
[2018-03-23] MEDS: Polyethylene Glycol 3350 17 GM Packet PO SCH (09:11)
[2018-03-23 11:46] LABS: Hematocrit 26.5 % (35.0-46.0); Hemoglobin 8.9 gm/dL (11.6-15.3)
[2018-03-23] MEDS: Hydrocortisone Acetate 25 MG Supp RECTAL SCH (21:20)
--- NOTE | 2018-03-24 05:12 | MB ---
cc: Tino Corado MD DATE: 03/23/2018 REASON FOR CONSULTATION: Rectal bleeding, anemia, possible hemorrhoidal bleeding. HISTORY OF PRESENT ILLNESS: The patient is a 37-year-old female who has been evaluated for the last several months for rectal bleeding and anemia felt secondary to her hemorrhoids. Discussion with the patient was assisted by her daughter who only spoke somewhat limited [place] as well. She reports having bright red blood per rectum during bowel movements now for the last several months. She does not seem to strain very much. Denies any abdominal distention. No particular nausea or vomiting. No diarrhea, no melena. The patient was seen back in February for similar problems, underwent upper and lower endoscopy, which showed no other source of the bleeding except her hemorrhoids. The patient was recently evaluated and found to have low hemoglobin about 6 and came to Emergency Room for additional evaluation. There is no other bleeding sources. Denies any vaginal bleeding, although this appeared to be seen during her last hospitalization. She has no family history of colon or rectal cancer. Please see the history and physical and other consultations for more complete past medical and surgical history. PHYSICAL EXAMINATION: GENERAL: A very pleasant [place]-speaking female in no acute distress. HEENT: Remarkable for pale, but dry membranes. Nonicteric sclerae. NECK: Supple without gross adenopathy. LUNGS: Relatively clear, symmetrical expanding. HEART: Had a regular rhythm. ABDOMEN: Soft and very benign. No distention. No rebound or guarding. No masses noted. RECTAL: Anal inspection revealed some external hemorrhoidal tags with some prolapse of her internal hemorrhoids upon straining. No obvious fissures or fistula. Digital exam revealed good tone. No mucosal irregularities. No blood on the finger. No obvious induration or thickening. LABORATORY STUDIES: Hemoglobin initially was 6.2 presently up to 8.9, platelet count was 316,000. Electrolytes are pretty unremarkable with a BUN of 8 and a creatinine of 0.65. PT/INR pretty normal. ASSESSMENT AND PLAN: Anemia, rectal bleeding, possible hemorrhoidal bleeding. Reviewed at length with the patient through her daughter's interpretation. Suggested we continue stool softeners and advance her diet. She has not had any appreciable bleeding today. Being Monday, suggested we could potentially keep her on some HC suppositories, stool softeners, and try to schedule elective surgery for a more complete evaluation of the hemorrhoidal tissues and if necessary proceed with hemorrhoidectomy. Risks, benefits, and alternatives to the surgery were all discussed in detail with the patient and we will have the hospitalist recheck her blood count and if stable, would plan on discharge home for elective hemorrhoidectomy. Tino Corado MD AHR/sv , 11:30 PM , 11:40 PM
[2018-03-24 05:46] LABS: Baso # (Auto) 0.1 th/mm3 (0.0-0.2); Baso % (Auto) 0.9 % (0.0-2.0); Eos # (Auto) 0.2 th/mm3 (0.0-0.4); Eos % (Auto) 2.9 % (0.0-4.0); Hematocrit 27.2 % (35.0-46.0); Lymph # (Auto) 2.2 th/mm3 (1.0-4.8); Lymph % (Auto) 28.3 % (9.0-44.0); Mean Corpuscular Hemoglobin 24.8 pg (27.0-34.0); Mean Corpuscular Volume 75.1 fL (80.0-100.0); Mean Platelet Volume 7.3 fL (7.0-11.0); Mono # (Auto) 0.8 th/mm3 (0.0-0.9); Mono % (Auto) 9.9 % (0.0-8.0); Neut # (Auto) 4.6 th/mm3 (1.8-7.7); Platelet Count 281 th/mm3 (150-450); Red Blood Count 3.62 mil/mm3 (4.00-5.30); Red Cell Distribution Width 19.5 % (11.6-17.2); White Blood Count 7.9 th/mm3 (4.0-11.0)
[2018-03-24 06:17] LABS: Anion Gap 9 meq/L (5-15); Blood Urea Nitrogen 11 mg/dL (7-18); Calcium 8.3 mg/dL (8.5-10.1); Chloride 108 meq/L (98-107); Glomerular Filtration Rate Greater Than 89 mL/min (>89); Glucose,Random 81 mg/dL (74-106); Potassium 3.6 meq/L (3.5-5.1); Sodium 143 meq/L (136-145)
--- NOTE | 2018-03-24 09:33 | P.PN ---
Subjective Interval history: Patient is in bed eating without any problems. No her belly. Says she had a bowel movement less bloody. Hemoglobin stable after transfusion. Seen by a colorectal surgery in the morning clear patient for discharge for follow-up as outpatient. Will plan for surgery at this time. No nausea vomiting diarrhea constipation denies any fever or chills. Physical Exam Vital signs: Vital Signs 03/23/18 12:00 03/23/18 16:00 03/23/18 20:00 Temperature 97.2 F L 98.0 F 98.1 F Pulse Rate 66 70 64 Respiratory Rate 14 18 18 Blood Pressure 93/59 L 108/55 L 108/53 L Pulse Oximetry 100 100 100 03/24/18 00:00 03/24/18 08:00 Temperature 97.4 F L 97.6 F Pulse Rate 60 66 Respiratory Rate 18 18 Blood Pressure 101/58 L 97/63 L Pulse Oximetry 99 96 Intake & Output 03/23/18 03/24/18 03/24/18 18:59 06:59 18:59 Intake Total 200 / 200 Output Total 500 / 500 Balance -300 / -300 Weight 61.7 kg Intake: IV 200 / 200 NS Inj 250 ML @ 15 mls/hr IV. 200 / 200 SIG ONCE VIVEK Rx#:[id number] Oral 0 / 0 Output: Urine 500 / 500 Other: # Voids 3 Date of Last Bowel Movement 03/24/18 # Bowel Movements 1 2 Narrative: GENERAL: 37 yo male, in nad. CARDIOVASCULAR: Regular rate and rhythm. RESPIRATORY: No accessory muscle use. Clear to auscultation. Breath sounds equal bilaterally. GASTROINTESTINAL: Abdomen soft, non-tender, nondistended. Hepatic and splenic margins not palpable. MUSCULOSKELETAL: Extremities without clubbing, cyanosis, or edema. No obvious deformities. NEUROLOGICAL: Awake and alert. No obvious cranial nerve deficits. Motor grossly within normal limits. Five out of 5 muscle strength in the arms and legs. Normal speech. PSYCHIATRIC: Appropriate mood and affect; insight and judgment normal. Results - Labs CBC & Chem 7: 03/24/18 04:16 03/24/18 04:16 Laboratory Results - last 24 hr 03/23/18 03/24/18 03/24/18 11:20 04:16 04:16 WBC 7.9 RBC 3.62 L Hgb 8.9 L D 9.0 L Hct 26.5 L 27.2 L MCV 75.1 L MCH 24.8 L MCHC 33.0 RDW 19.5 H Plt Count 281 MPV 7.3 Neut % (Auto) 58.0 Lymph % (Auto) 28.3 [place] % (Auto) 9.9 H Eos % (Auto) 2.9 Baso % (Auto) 0.9 Neut # (Auto) 4.6 Lymph # (Auto) 2.2 [place] # (Auto) 0.8 Eos # (Auto) 0.2 Baso # (Auto) 0.1 WBC Differential . Differential Comment Auto diff final Sodium 143 Potassium 3.6 Chloride 108 H Carbon Dioxide 26.0 Anion Gap 9 BUN 11 Creatinine 0.65 Estimated GFR Greater than 89 Random Glucose 81 Calcium 8.3 L Assessment and Plan - Plan 37-year-old female being admitted for acute anemia secondary to bright red blood per rectum Acute anemia with HGB of 6.2 on admission Transfused 2 unit of blood H/H is stable . Continue to monitor and transfuse if HGB < 7 or if symptomatic Was seen by colorectal surgery. Patient is clear for discharge to follow-up as outpatient colorectal surgery. Bright red blood per rectum Likely secondary to internal hemorrhoids given pain -Colorectal surgery consulted Constipation/hemorrhoids -daily miralax -Bowel regimen. Discussed at length with the patient dietary changes. GI recommends CRC to evaluate. Was seen by colorectal surgery. Patient is clear for discharge to follow-up as outpatient colorectal surgery.
[2018-03-24] MEDS: Polyethylene Glycol 3350 17 GM Packet PO SCH (10:36)
[2018-03-24] MEDS: Hydrocortisone Acetate 25 MG Supp RECTAL SCH (10:37)
--- NOTE | 2018-03-24 14:28 | P.DS ---
Date of admission: 03/23/18 11:17 Primary care physician: No Primary Care Physician Brief History from admission: 37-year-old female being admitted for acute anemia secondary to blood loss secondary to bleeding hemorrhoids. Patient was in usual state of health until about 1 week ago when she began experiencing daily bright red blood per bowel movement. Reports having painful bowel movements this week. Denies having any nausea or vomiting. Denies any vaginal bleeding. 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 The only other symptom she endorses lightheadedness and a headache. She reports being compliant with the medical regimen for her hemorrhoids since her last hospitalization for GI bleeding secondary to hemorrhoids, entailing twice daily MiraLAX and suppository as well as cortisone cream. Emergency department her hemoglobin was noted to be in the low 6s, ER physician informed me that the patient likely has internal hemorrhoids based upon his examination. Patient reports that digital rectal examination was quite painful. DS: Diagnosis - Discharge Diagnosis (1) Anemia Status: Acute (2) Hemorrhoids Status: Acute (3) No pertinent past medical history Status: Acute DS: Medications - Discharge Medications Prescriptions: polyethylene glycol 3350 17 gm PO DAILY #30 ea DS: Summary Hospital Course: 37-year-old female being admitted for acute anemia secondary to bright red blood per rectum. HGB of 6.2 on admission she was transfused 2 units of blood. Hemoglobin stable afterwards. Patient was seen by colorectal surgery. Recommends follow-up as outpatient. Patient is discharged home in stable condition to follow-up with PCP and with colorectal as outpatient. Acute anemia with HGB of 6.2 on admission Transfused 2 unit of blood H/H is stable . Continue to monitor and transfuse if HGB < 7 or if symptomatic Was seen by colorectal surgery. Patient is clear for discharge to follow-up as outpatient colorectal surgery. Continue ferrous sulfate supplement Bright red blood per rectum Likely secondary to internal hemorrhoids given pain -Colorectal surgery consulted Constipation/hemorrhoids -daily miralax -Bowel regimen. Discussed at length with the patient dietary changes. GI recommends CRC to evaluate. Was seen by colorectal surgery. Patient is clear for discharge to follow-up as outpatient colorectal surgery. - Time Spent with Patient Total time spent providing and/or coordinating discharge services: Greater than 30 minutes - Quality: VTE Deep Vein Thrombosis/Pulmonary Embolism Present on Admission: Yes Exam Vital signs: Vital Signs 03/23/18 16:00 03/23/18 20:00 03/24/18 00:00 Temperature 98.0 F 98.1 F 97.4 F L Pulse Rate 70 64 60 Respiratory Rate 18 18 18 Blood Pressure 108/55 L 108/53 L 101/58 L Pulse Oximetry 100 100 99 03/24/18 08:00 03/24/18 12:00 Temperature 97.6 F 97.1 F L Pulse Rate 66 74 Respiratory Rate 18 17 Blood Pressure 97/63 L 137/73 Pulse Oximetry 96 99 Intake & Output 03/23/18 03/24/18 03/24/18 18:59 06:59 18:59 Intake Total 200 / 200 Output Total 500 / 500 Balance -300 / -300 Weight 61.7 kg Intake: IV 200 / 200 NS Inj 250 ML @ 15 mls/hr IV. 200 / 200 SIG ONCE VIVEK Rx#:[id number] Oral 0 / 0 Output: Urine 500 / 500 Other: # Voids 3 Date of Last Bowel Movement 03/24/18 03/24/18 # Bowel Movements 1 2 Narrative: GENERAL: 37 yo male, in nad. CARDIOVASCULAR: Regular rate and rhythm. RESPIRATORY: No accessory muscle use. Clear to auscultation. Breath sounds equal bilaterally. GASTROINTESTINAL: Abdomen soft, non-tender, nondistended. Hepatic and splenic margins not palpable. MUSCULOSKELETAL: Extremities without clubbing, cyanosis, or edema. No obvious deformities. NEUROLOGICAL: Awake and alert. No obvious cranial nerve deficits. Motor grossly within normal limits. Five out of 5 muscle strength in the arms and legs. Normal speech. PSYCHIATRIC: Appropriate mood and affect; insight and judgment normal. Results Procedures completed during hospitalization: No procedures Labs on day of discharge: Labs from last 24 hours 03/24/18 03/24/18 04:16 04:16 WBC 7.9 RBC 3.62 L Hgb 9.0 L Hct 27.2 L MCV 75.1 L MCH 24.8 L MCHC 33.0 RDW 19.5 H Plt Count 281 MPV 7.3 Neut % (Auto) 58.0 Lymph % (Auto) 28.3 [place] % (Auto) 9.9 H Eos % (Auto) 2.9 Baso % (Auto) 0.9 Neut # (Auto) 4.6 Lymph # (Auto) 2.2 [place] # (Auto) 0.8 Eos # (Auto) 0.2 Baso # (Auto) 0.1 WBC Differential . Differential Comment Auto diff final Sodium 143 Potassium 3.6 Chloride 108 H Carbon Dioxide 26.0 Anion Gap 9 BUN 11 Creatinine 0.65 Estimated GFR Greater than 89 Random Glucose 81 Calcium 8.3 L Discharge Plan - Discharge Disposition Patient Disposition: 01 Discharge Home - Discharge Condition Condition: Stable - Discharge Order Discharge Orders: Discharge Order (Routine); Ordered 03/24/18 Ordered By: Tamiko Flores - Discharge Details Anticipated Discharge Date: 03/24/18 - Physicians Team Primary Care Provider: Primary Care Gaby Bartlett Attending Provider: Tamiko Flores Other Providers: Tino Corado MD
== END 2018-03-24 16:01 | disposition home or self-care (01) ==
LOC: NEPE 11:10 → NEDA 13:44 → INTOOBSV 13:44 → N07 15:10
PROVIDERS: ADMIT Hospitalist; ATTEND Hospitalist